=== PATIENT | male | born 1955 | race Caucasian/White ===

== ENCOUNTER → 2016-12-22 | Outpatient (CLI) | payer BC ==
--- NOTE | 2016-12-22 17:18 | NM ---
EXAMINATION TYPE: NM stress cardiolite complete DATE OF EXAM: 12/22/2016 11:02 AM COMPARISON: NONE HISTORY: 61-year-old male with chest pain TECHNIQUE: After the intravenous administration of 10.35 mCi Tc 99m Sestamibi - Rest images obtained 45 minutes post injection. The patient exercised using a HERIBERTO protocol and 1 minute prior to peak exercise was injected with 26.9 mCi Tc 99m Sestamibi - Stress images obtained 10 minutes post inject ion. FINDINGS: Targeted heart rate was achieved during performance of the study. Review of stress and rest SPECT theresa ges demonstrates no distinct perfusion abnormality. Gated analysis shows normal wall motion with an estimated left ventricular ejection fraction of 57 %. Polar maps are normal. TID as calculated at 0.8 3, within normal limits. IMPRESSION: No scintigraphic evidence for reversible ischemia
--- NOTE | 2016-12-23 15:16 | EST ---
DATE OF SERVICE: 12/22/2016 AGE: 61Y SEX: M HT: 5'10" WT: 239 lbs. Protocol Kane: X Other: Stress Cardiolite Stage: 3 Dur. of Exercise: 8:00 *Heart Rate Blood Pressure *Rest: 64 Rest: 134/95 * *Max. Achieved: 146 Maximum BP: 132/63 85% PMHR: 134 100% PMHR: 158 *METS: 9.7 INDICATIONS: Chest pain. MEDICATIONS: Lisinopril. Patient was exercised for a total period of 8 minutes. The peak heart rate of 146 was achieved. Maximum blood pressure 132/63 mmHg was noted. The resting EKG shows normal sinus rhythm with normal MI interval and QRS duration and normal ST-T waves. No ST segment depression suggestive of ischemia was noted. Patient did not complain of any chest pain during the test. No dysrhythmias are noted. FINAL IMPRESSION: 1. This exercise test is not suggestive of ischemia. 2. Patient's exercise tolerance is normal. 3. The results of the nuclear study will follow.
== END | disposition home or self-care (01) ==
LOC: RADNMMAIN 08:13
PROVIDERS: ATTEND Family Medicine
DX: R07.9 Chest pain, unspecified (principal)
CPT/HCPCS: 93017; 78452; A9500

== ENCOUNTER 2017-03-18 00:24 | Inpatient (IN) | payer BC ==
[2017-03-18] MEDS ORDERED: ENOXAPARIN 100 MG/ML SYRINGE SQ STA (00:50)
[2017-03-18] MEDS ORDERED: DILTIAZEM 125 MG in SODIUM CHLORIDE 0.9% 100 ML IV ONE (00:50)
[2017-03-18 01:10] LABS: Basophils % (A) 1 %; CH 33.6; CHCM 35.9; Eosinophils # (A) 0.2 k/uL (0-0.7); Eosinophils % (A) 3 %; HCT 42.9 % (39.0-53.0); HDW 2.84; HGB 15.2 gm/dL (13.0-17.5); Luc # (Auto) 0.24; Luc % (Auto) 4; Lymphocytes # (A) 2.3 k/uL (1.0-4.8); Lymphocytes % (A) 35 %; MCH 33.3 pg (25.0-35.0); MCHC 35.4 g/dL (31.0-37.0); MCV 93.9 fL (80.0-100.0); Mean Platelet Volume 7.2; Monocytes # (A) 0.5 k/uL (0-1.0); Monocytes % (A) 8 %; Neutrophils # (A) 3.4 k/uL (1.3-7.7); Neutrophils % (A) 51 %; RBC 4.57 m/uL (4.30-5.90); RDW 13.7 % (11.5-15.5); WBC 6.7 k/uL (3.8-10.6); WBC (Perox) 6.39
--- NOTE | 2017-03-18 01:20 | XR ---
EXAM: XR Chest, 1 View CLINICAL HISTORY: Reason: dysrhythmia TECHNIQUE: Frontal view of the chest. COMPARISON: No relevant prior studies available. FINDINGS: Lungs: Unremarkable. No consolidation. Pleural space: Unremarkable. No pneumothorax. Heart: Unremarkable. No cardiomegaly. Mediastinum: Unremarkable. Bones/joints: There are degenerative changes in the spine and shoulders. Tubes, lines and devices: Several EKG leads and wires overlie the chest. IMPRESSION: No acute process seen within the chest.
[2017-03-18 01:30] LABS: ALT 60 U/L (21-72); AST 49 U/L (17-59); Alkaline Phosphatase 51 U/L (38-126); Anion Gap 11 mmol/L; Blood Urea Nitrogen 22 mg/dL (9-20); Calcium 9.6 mg/dL (8.4-10.2); Carbon Dioxide 21 mmol/L (22-30); Chloride 110 mmol/L (98-107); Glucose 104 mg/dL (74-99); Magnesium 2.1 mg/dL (1.6-2.3); Non-African American GFR(MDRD) >60 (>60 ml/min/1.73 sqM); Potassium 4.1 mmol/L (3.5-5.1); Sodium 142 mmol/L (137-145); Total Bilirubin 1.3 mg/dL (0.2-1.3); Total Protein 6.8 g/dL (6.3-8.2)
[2017-03-18 01:39] LABS: Partial Thromboplastin Time 23.1 sec (22.0-30.0); Prothrombin Time 10.3 sec (9.0-12.0)
[2017-03-18 01:40] LABS: Creatine Kinase 769 U/L (55-170)
[2017-03-18 01:52] LABS: Troponin I <0.012 ng/mL (0.000-0.034)
[2017-03-18 02:08] LABS: Creatine Kinase MB 8.2 ng/mL (0.0-2.4)
[2017-03-18] MEDS ORDERED: DILTIAZEM 5 MG/ML 5 ML VIAL IVP STA (02:30)
[2017-03-18] MEDS ORDERED: NITROGLYCERIN SL TABS 0.4 MG TAB SUBLINGUAL PRN (03:28)
[2017-03-18] MEDS ORDERED: SODIUM CHLORIDE 0.9% 1,000 ML IV SCH (03:30)
[2017-03-18] MEDS ORDERED: ENOXAPARIN 40 MG/0.4 ML SYRINGE SQ SCH (03:30)
--- NOTE | 2017-03-18 03:34 | ED ---
Arrhythmia/Palpitations HPI - General Chief Complaint: Arrhythmia/Palpitations Stated Complaint: Arrythmia Time Seen by Provider: 03/18/17 00:40 Source: patient Mode of arrival: wheelchair Limitations: no limitations - History of Present Illness Initial Comments: this patient is a 61-year-old man who presents with complaint that he feels his heart is beating rapidly and somewhat irregular. The patient states that he had been feeling well most of the day. He went to bed and then woke up around midnight. He got up to use the bathroom and after he had noticed that his heart was racing and it seemed irregular as well. Patient denies jordan pain. He states that it his breathing also felt a little off though he is reluctant to described as being short of breath. MD Complaint: rapid heart beat, irregular heart beat -: hour(s) Context: occurred during rest Associated Symptoms: shortness of breath - Related Data Home Medications Medication Instructions Recorded Confirmed Aspirin [Adult Low Dose Aspirin EC] 81 mg PO DAILY 03/18/17 03/18/17 Lisinopril [Zestril] 10 mg PO DAILY 03/18/17 03/18/17 Allergies Allergy/AdvReac Type Severity Reaction Status Date / Time No Known Allergies Allergy Verified 03/18/17 00:34 Review of Systems ROS Statement: Those systems with pertinent positive or pertinent negative responses have been documented in the HPI. ROS Other: All systems not noted in ROS Statement are negative. Constitutional: Denies: fever, chills Respiratory: Reports: as per HPI, dyspnea. Denies: cough, wheezes Cardiovascular: Reports: palpitations. Denies: chest pain, orthopnea, edema, syncope Gastrointestinal: Denies: abdominal pain, nausea, vomiting Genitourinary: Denies: dysuria, hematuria Musculoskeletal: Denies: back pain Skin: Denies: rash Neurological: Denies: headache, weakness, numbness Past Medical History Past Medical History: Hypertension History of Any Multi-Drug Resistant Organisms: None Reported Additional Past Surgical History / Comment(s): hernia Past Psychological History: No Psychological Hx Reported Smoking Status: Former smoker Past Alcohol Use History: None Reported Past Drug Use History: None Reported - Past Family History Brother(s) Family Medical History: Myocardial Infarction ([place]) Additional Family Medical History / Comment(s): Stents x2 Father Family Medical History: Myocardial Infarction ([place]) Additional Family Medical History / Comment(s): Smoker- 3 packs a day, from an [place] General Exam Limitations: no limitations General appearance: alert, in no apparent distress Head exam: Present: atraumatic, normocephalic Eye exam: Present: normal appearance. Absent: scleral icterus, conjunctival injection Neck exam: Present: normal inspection Respiratory exam: Present: normal lung sounds bilaterally. Absent: respiratory distress, wheezes, rales, rhonchi, stridor Cardiovascular Exam: Present: tachycardia (rate was in the 130s.), irregular rhythm, normal heart sounds. Absent: systolic murmur, diastolic murmur, rubs, gallop GI/Abdominal exam: Present: soft. Absent: distended, tenderness, guarding, rebound, rigid, mass Extremities exam: Present: normal inspection, normal capillary refill. Absent: pedal edema, calf tenderness Back exam: Present: normal inspection. Absent: CVA tenderness (R), CVA tenderness (L) Neurological exam: Present: alert Skin exam: Present: warm, dry, intact, normal color. Absent: rash Course Vital Signs 03/18/17 03/18/17 03/18/17 00:31 01:33 02:58 Temperature 97.7 F Pulse Rate 65 137 H 108 H Respiratory 18 20 20 Rate Blood Pressure 134/89 106/67 112/71 O2 Sat by Pulse 97 98 98 Oximetry 03/18/17 03/18/17 03:45 04:55 Temperature 97.5 F L Pulse Rate 96 70 Respiratory 16 18 Rate Blood Pressure 120/61 111/63 O2 Sat by Pulse 98 97 Oximetry EKG Findings - EKG Results: EKG: interpreted by ERMD, normal axis EKG shows: tachycardia (rate is in the 130s.), atrial fibrillation - Blocks, Weed, Hypertrophy, ST Abn: Repolarization changes or abnormalities: nonspecific abnormality, ST segment, and/or T wave Medical Decision Making - Medical Decision Making patient is 61-year-old man with what appears to be a new onset of atrial fibrillation with a rapid ventricular rate. Lovenox is started. Patient started on Cardizem for rate control. Initial cardiac enzymes negative. Patient feeling better though the rate still is in the 110s and 20s. Patient admitted with cardiology consultation. - Lab Data Result diagrams: 03/18/17 00:55 03/18/17 00:55 Lab Results 03/18/17 03/18/17 03/18/17 Range/Units 00:55 00:55 00:55 WBC 6.7 (3.8-10.6) k/uL RBC 4.57 (4.30-5.90) m/uL Hgb 15.2 (13.0-17.5) gm/dL Hct 42.9 (39.0-53.0) % MCV 93.9 (80.0-100.0) fL MCH 33.3 (25.0-35.0) pg MCHC 35.4 (31.0-37.0) g/dL RDW 13.7 (11.5-15.5) % Plt Count 138 L (150-450) k/uL Neutrophils % 51 % Lymphocytes % 35 % Monocytes % 8 % Eosinophils % 3 % Basophils % 1 % Neutrophils # 3.4 (1.3-7.7) k/uL Lymphocytes # 2.3 (1.0-4.8) k/uL Monocytes # 0.5 (0-1.0) k/uL Eosinophils # 0.2 (0-0.7) k/uL Basophils # 0.0 (0-0.2) k/uL PT (9.0-12.0) sec INR (<1.1) APTT (22.0-30.0) sec Sodium 142 (137-145) mmol/L Potassium 4.1 (3.5-5.1) mmol/L Chloride 110 H (98-107) mmol/L Carbon Dioxide 21 L (22-30) mmol/L Anion Gap 11 mmol/L BUN 22 H (9-20) mg/dL Creatinine 1.00 (0.66-1.25) mg/dL Est GFR (MDRD) Af Amer >60 (>60 ml/min/1.73 sqM) Est GFR (MDRD) Non-Af >60 (>60 ml/min/1.73 sqM) Glucose 104 H (74-99) mg/dL Calcium 9.6 (8.4-10.2) mg/dL Magnesium 2.1 (1.6-2.3) mg/dL Total Bilirubin 1.3 (0.2-1.3) mg/dL AST 49 (17-59) U/L ALT 60 (21-72) U/L Alkaline Phosphatase 51 (38-126) U/L Total Creatine Kinase 769 H (55-170) U/L CK-MB (CK-2) 8.2 H* (0.0-2.4) ng/mL CK-MB (CK-2) Rel Index 1.1 Troponin I <0.012 (0.000-0.034) ng/mL Total Protein 6.8 (6.3-8.2) g/dL Albumin 4.1 (3.5-5.0) g/dL 03/18/17 Range/Units 00:55 WBC (3.8-10.6) k/uL RBC (4.30-5.90) m/uL Hgb (13.0-17.5) gm/dL Hct (39.0-53.0) % MCV (80.0-100.0) fL MCH (25.0-35.0) pg MCHC (31.0-37.0) g/dL RDW (11.5-15.5) % Plt Count (150-450) k/uL Neutrophils % % Lymphocytes % % Monocytes % % Eosinophils % % Basophils % % Neutrophils # (1.3-7.7) k/uL Lymphocytes # (1.0-4.8) k/uL Monocytes # (0-1.0) k/uL Eosinophils # (0-0.7) k/uL Basophils # (0-0.2) k/uL PT 10.3 (9.0-12.0) sec INR 1.0 (<1.1) APTT 23.1 (22.0-30.0) sec Sodium (137-145) mmol/L Potassium (3.5-5.1) mmol/L Chloride (98-107) mmol/L Carbon Dioxide (22-30) mmol/L Anion Gap mmol/L BUN (9-20) mg/dL Creatinine (0.66-1.25) mg/dL Est GFR (MDRD) Af Amer (>60 ml/min/1.73 sqM) Est GFR (MDRD) Non-Af (>60 ml/min/1.73 sqM) Glucose (74-99) mg/dL Calcium (8.4-10.2) mg/dL Magnesium (1.6-2.3) mg/dL Total Bilirubin (0.2-1.3) mg/dL AST (17-59) U/L ALT (21-72) U/L Alkaline Phosphatase (38-126) U/L Total Creatine Kinase (55-170) U/L CK-MB (CK-2) (0.0-2.4) ng/mL CK-MB (CK-2) Rel Index Troponin I (0.000-0.034) ng/mL Total Protein (6.3-8.2) g/dL Albumin (3.5-5.0) g/dL Critical Care Time Critical Care Time: Yes (35 minutes) Disposition Clinical Impression: Atrial fibrillation with RVR Disposition: ADMITTED IP TO THIS HOSP Condition: Fair
[2017-03-18 05:57] VITALS: BMI 32.8
[2017-03-18 07:19] LABS: Creatine Kinase 620 U/L (55-170)
[2017-03-18 07:31] LABS: Troponin I <0.012 ng/mL (0.000-0.034)
[2017-03-18 07:36] LABS: Creatine Kinase MB 7.1 ng/mL (0.0-2.4)
[2017-03-18] MEDS: LISINOPRIL 10 MG TAB PO SCH (08:41)
[2017-03-18] MEDS ORDERED: NON-FORMULARY DRUG (Aspirin [Adult Low Dose Aspirin Ec] 81 MG) PO SCH (09:00)
[2017-03-18] MEDS ORDERED: ENOXAPARIN 100 MG/ML SYRINGE SQ SCH (12:00)
--- NOTE | 2017-03-18 12:18 | P.CRDCN ---
History of Present Illness Consult date: 03/18/17 Requesting physician: Darion Galan Consult reason: atrial fibrillation Chief complaint: Palpitations History of present illness: This is a pleasant 61-year-old gentleman with history of hypertension , no diabetes, no hyperlipidemia, nonsmoker, who presents to the hospital with symptoms of palpitations. According to the patient and his both had the flu in December, and since then he states he's been getting intermittent palpitations. Even prior to that, patient states that he's been getting palpitations which he attributed to his hiatal hernia. He has never had documented atrial fibrillation in the past. Patient states that when he goes into this a regular rhythm he feels awful, he denies any syncopal episodes, no overt dizziness or lightheadedness, mild shortness of breath. EKG on admission showed atrial fibrillation with a rapid ventricular response, patient was initiated on IV Cardizem and is now in normal sinus rhythm. Chest x-ray does not reveal any acute process. CBC normal. Potassium 4.1, BUN 22, creatinine 1.0. Troponins 0.0122.. At the time of my examination this morning, patient denies any palpitations, no dizziness or lightheadedness, breathing is stable. Continues to be in a normal sinus rhythm. Cardizem drip has been discontinued, patient is on Lovenox 100 mg subcu twice a day. We will discontinue the aspirin. Check to see if the patient has coverage for one of the newer anticoagulants. We will also request a TSH level and echocardiogram with Doppler study Past Medical History Past Medical History: Hypertension Additional Past Medical History / Comment(s): pt states "the palpation started the day after I had in the flu back in dec. I'll have them for a week or so then it goes away. It starts at night when I lay down". Hernia x4 (2 have been repaired), History of Any Multi-Drug Resistant Organisms: None Reported Additional Past Surgical History / Comment(s): hernia Past Anesthesia/Blood Transfusion Reactions: No Reported Reaction Past Psychological History: No Psychological Hx Reported Smoking Status: Former smoker Past Alcohol Use History: None Reported Past Drug Use History: None Reported - Past Family History Brother(s) Family Medical History: Myocardial Infarction ([place]) Additional Family Medical History / Comment(s): Stents x2 Father Family Medical History: Myocardial Infarction ([place]) Additional Family Medical History / Comment(s): Smoker- 3 packs a day, from an [place] Medications and Allergies Home Medications Medication Instructions Recorded Confirmed Type Aspirin [Adult Low Dose Aspirin EC] 81 mg PO DAILY 03/18/17 03/18/17 History Lisinopril [Zestril] 10 mg PO BID 03/18/17 03/18/17 History Allergies Allergy/AdvReac Type Severity Reaction Status Date / Time No Known Allergies Allergy Verified 03/18/17 00:34 Physical Exam Vitals: Vital Signs Temp Pulse Pulse Resp BP BP Pulse Ox 03/18/17 08:28 96 03/18/17 08:00 96.4 F L 68 109/65 94 L 03/18/17 05:10 97.0 F L 89 17 111/73 94 L 03/18/17 04:55 97.5 F L 70 18 111/63 97 03/18/17 03:45 96 16 120/61 98 03/18/17 02:58 108 H 20 112/71 98 03/18/17 01:33 137 H 20 106/67 98 03/18/17 00:31 97.7 F 65 18 134/89 97 Intake and Output 03/17/17 03/18/17 03/18/17 22:59 06:59 14:59 Intake Total 5 337.5 Balance 5 337.5 Intake: IV 5 Diltiazem 125 mg In 5 Sodium Chloride 0.9% 100 ml @ 5 MG/HR 5 mls/hr IV .Q24H ONE Rx#:[id number] Intake, IV Titration 37.5 Amount Diltiazem 125 mg In 37.5 Sodium Chloride 0.9% 100 ml @ 5 MG/HR 5 mls/hr IV .Q24H ONE Rx#:[id number] Oral 300 Other: Weight 106.594 kg PHYSICAL EXAMINATION: HEENT: Head is atraumatic, normocephalic. Pupils equal, round. Neck is supple. There is no elevated jugular venous pressure. HEART EXAMINATION: Heart S1, S2 normal. No murmur or gallop heard. CHEST EXAMINATION: Lungs are clear to auscultation and precussion. No chest wall tenderness is noted on palpation or with deep breathing. ABDOMEN: Soft, nontender. Bowel sounds are heard. No organomegaly noted. EXTREMITIES: 2+ peripheral pulses with no evidence of peripheral edema and no calf tenderness noted. NEUROLOGIC patient is awake, alert and oriented -3. . Results 03/18/17 00:55 03/18/17 00:55 Cardiac Enzymes 03/18/17 03/18/17 03/18/17 Range/Units 00:55 00:55 06:35 AST 49 (17-59) U/L CK-MB (CK-2) 8.2 H* 7.1 H* (0.0-2.4) ng/mL Troponin I <0.012 <0.012 (0.000-0.034) ng/mL Coagulation 03/18/17 Range/Units 00:55 PT 10.3 (9.0-12.0) sec APTT 23.1 (22.0-30.0) sec CBC 03/18/17 Range/Units 00:55 WBC 6.7 (3.8-10.6) k/uL RBC 4.57 (4.30-5.90) m/uL Hgb 15.2 (13.0-17.5) gm/dL Hct 42.9 (39.0-53.0) % Plt Count 138 L (150-450) k/uL Comprehensive Metabolic Panel 03/18/17 Range/Units 00:55 Sodium 142 (137-145) mmol/L Potassium 4.1 (3.5-5.1) mmol/L Chloride 110 H (98-107) mmol/L Carbon Dioxide 21 L (22-30) mmol/L BUN 22 H (9-20) mg/dL Creatinine 1.00 (0.66-1.25) mg/dL Glucose 104 H (74-99) mg/dL Calcium 9.6 (8.4-10.2) mg/dL AST 49 (17-59) U/L ALT 60 (21-72) U/L Alkaline Phosphatase 51 (38-126) U/L Total Protein 6.8 (6.3-8.2) g/dL Albumin 4.1 (3.5-5.0) g/dL Current Medications Generic Name Dose Route Start Last Admin Trade Name Freq PRN Reason Stop Dose Admin Aspirin 325 mg 03/19/17 09:00 Aspirin PO DAILY DAYSI Enoxaparin Sodium 100 mg 03/18/17 12:00 Lovenox SQ Q12H DAYSI Sodium Chloride 1,000 mls @ 20 mls/hr 03/18/17 03:30 03/18/17 06:33 Saline 0.9% IV 20 mls/hr .Q24H DAYSI Administration Lisinopril 10 mg 03/18/17 09:00 03/18/17 08:41 Zestril PO 10 mg DAILY DAYSI Administration Nitroglycerin 0.4 mg 03/18/17 03:28 Nitrostat SUBLINGUAL Q5M PRN Chest Pain Intake and Output 03/17/17 03/18/17 03/18/17 22:59 06:59 14:59 Intake Total 5 337.5 Balance 5 337.5 Intake: IV 5 Diltiazem 125 mg In 5 Sodium Chloride 0.9% 100 ml @ 5 MG/HR 5 mls/hr IV .Q24H ONE Rx#:[id number] Intake, IV Titration 37.5 Amount Diltiazem 125 mg In 37.5 Sodium Chloride 0.9% 100 ml @ 5 MG/HR 5 mls/hr IV .Q24H ONE Rx#:[id number] Oral 300 Other: Weight 106.594 kg 03/18/17 00:55 03/18/17 00:55 EKG Interpretations (text) EKG shows atrial fibrillation with rapid ventricular response Assessment and Plan Plan: Assessment and plan #1 atrial fibrillation with rapid ventricular response, appears to be of new onset. Paroxysmal in nature. #2 hypertension #3 hiatal hernia Plan We will obtain an echocardiogram with Doppler study. We will also request a TSH level be performed. We will check to see if patient has coverage for one of the newer anticoagulants. Discontinue aspirin. Further recommendations to follow. DNP note has been reviewed, I agree with a documented findings and plan of care. Patient was seen and examined.
--- NOTE | 2017-03-18 12:53 | P.PN ---
Progress Note - Text 61-year-old male patient with recurrent palpitations for the last for 5 months after he developed a viral gastroenteritis. The episodes last for up to 5 hours. He feels tired fatigued short of breath and dizzy with this it usually occurs when he is resting was the evening after a heavy meal and is often preceded by upper GI symptoms and a bloating sensation and burping Hypertension for many years states that he has sleep apnea and stops breathing but he has never been formally tested for this No diabetes, denies dyslipidemia, TSH pending Examination is normal He is back in sinus rhythm Twelve-lead ECG is not available in the EMR and I got a copy from the EKG machine and it shows atrial fibrillation with a heart rate of 128 beats a minute nonspecific ST T abnormalities T-wave inversions in the inferior leads and the lateral precordial leads Impression Recurrent paroxysmal atrial fibrillation Hypertension, essential Likely sleep apnea Abnormal ECG with T-wave inversions as described above Plan I had a very detailed discussion with him regarding the management of atrial fibrillation I discussed antiarrhythmic drug therapy as well as ablation for atrial fibrillation I discussed anticoagulation and his ANGIE VASC score appears to be one 2-D echo, TSH, ELIQUIS short-term Flecainide 100 mg twice daily as an inpatient, twelve-lead ECG tomorrow. If this is normal then he may go home on 50 g twice daily If he continues to have breakthrough episodes, pulmonary vein isolation will be recommended Hypertension management, home blood pressure monitoring Sleep apnea assessment I'll see him in the office in a few weeks Exercise stress testing on flecainide
[2017-03-18 13:36] LABS: Creatine Kinase 529 U/L (55-170)
[2017-03-18 13:49] LABS: Troponin I <0.012 ng/mL (0.000-0.034)
[2017-03-18 14:10] LABS: Creatine Kinase MB 6.4 ng/mL (0.0-2.4)
[2017-03-18] MEDS: FLECAINIDE 50 MG TAB PO SCH ×2 (14:40→20:49)
[2017-03-18] MEDS: APIXABAN 5 MG TAB PO SCH ×2 (14:40→18:12)
--- NOTE | 2017-03-18 14:55 | P.HPIM ---
History of Present Illness H&P Date: 03/18/17 Chief Complaint: Heart palpitations Patient is a 61-year-old male, patient of Dr. Galan in the outpatient setting, with medical history significant for hypertension, osteophyte is, a large prostate, and hiatal hernia. Patient presented to the emergency department with complains of heart palpitations. Onset of symptoms started after patient had a large meal 2 hours before going to bed and then woke up with heartburn and feeling his heart racing. Patient reports that he's had approximately 3-4 episodes in the past starting in November after patient had the Norovirus. Patient states it usually starts after he has a large meal and develops heartburn and subsequent heart palpitations. Patient states symptoms usually subside but are associated with mild lightheadedness and weakness. Patient states he sits up symptoms normally dissipate. Patient states he had a recent stress test that was normal. Patient reports occasional abdominal bloating. Patient reports urinary hesitancy. Patient denies any recent illness, fevers, shortness of breath, chest pain, abdominal pain, diarrhea, or constipation. Patient denies dysuria or hematuria. EKG in the emergency department with evidence of atrial fibrillation with heart rate in the 130s. Troponins negative 3. Chest x-ray with no acute cardiopulmonary process. Patient was started on IV Cardizem and transferred to selective care unit with consult to cardiology service. Upon exam, patient is feeling better. Denies palpitations, dizziness, lightheadedness, shortness of breath, or chest pain. Patient is currently in normal sinus rhythm. Cardizem drip has been discontinued and patient has been started on Lovenox 100 mg subcu twice a day. Thyroid function test within normal limit. Echocardiogram with Doppler study pending. Cardiology has seen and evaluated patient and is planning to check if patient has coverage for one of the new anticoagulants. Past Medical History Past Medical History: Hypertension Additional Past Medical History / Comment(s): pt states "the palpation started the day after I had in the flu back in dec. I'll have them for a week or so then it goes away. It starts at night when I lay down". Hernia x4 (2 have been repaired), History of Any Multi-Drug Resistant Organisms: None Reported Additional Past Surgical History / Comment(s): hernia Past Anesthesia/Blood Transfusion Reactions: No Reported Reaction Past Psychological History: No Psychological Hx Reported Smoking Status: Former smoker Past Alcohol Use History: None Reported Past Drug Use History: None Reported - Past Family History Brother(s) Family Medical History: Myocardial Infarction ([place]) Additional Family Medical History / Comment(s): Stents x2 Father Family Medical History: Myocardial Infarction ([place]) Additional Family Medical History / Comment(s): Smoker- 3 packs a day, from an [place] Medications and Allergies Home Medications Medication Instructions Recorded Confirmed Type Aspirin [Adult Low Dose Aspirin EC] 81 mg PO DAILY 03/18/17 03/18/17 History Lisinopril [Zestril] 10 mg PO BID 03/18/17 03/18/17 History Allergies Allergy/AdvReac Type Severity Reaction Status Date / Time No Known Allergies Allergy Verified 03/18/17 00:34 Physical Exam Vitals: Vital Signs Temp Pulse Pulse Resp BP BP Pulse Ox 03/18/17 08:28 96 03/18/17 08:00 96.4 F L 68 109/65 94 L 03/18/17 05:10 97.0 F L 89 17 111/73 94 L 03/18/17 04:55 97.5 F L 70 18 111/63 97 03/18/17 03:45 96 16 120/61 98 03/18/17 02:58 108 H 20 112/71 98 03/18/17 01:33 137 H 20 106/67 98 03/18/17 00:31 97.7 F 65 18 134/89 97 Intake and Output 03/17/17 03/18/17 03/18/17 22:59 06:59 14:59 Intake Total 5 337.5 Balance 5 337.5 Intake: IV 5 Diltiazem 125 mg In 5 Sodium Chloride 0.9% 100 ml @ 5 MG/HR 5 mls/hr IV .Q24H ONE Rx#:[id number] Intake, IV Titration 37.5 Amount Diltiazem 125 mg In 37.5 Sodium Chloride 0.9% 100 ml @ 5 MG/HR 5 mls/hr IV .Q24H ONE Rx#:[id number] Oral 300 Other: Weight 106.594 kg GENERAL: Pt awake and alert, well-appearing, well-nourished, and in no acute distress. HEAD: Atraumatic, normocephalic. EYES: Pupils equal, round, and reactive to light, extraocular movements intact, sclera anicteric, conjunctiva are normal. ENT: Moist mucous membranes. NECK:Supple without lymphadenopathy or JVD. LUNGS: Breath sounds clear to auscultation bilaterally. No wheezes, rales, or rhonchi. HEART: Heart S1, S2, no S3 or S4. Regular rate and rhythm. No murmurs, rubs or gallops. ABDOMEN: Soft, nontender, mildly distended, normoactive bowel sounds. No guarding, no rebound. No masses or organomegaly appreciated. EXTREMITIES: 2+ peripheral pulses. No edema, clubbing or cyanosis. No calf tenderness. NEUROLOGICAL: Pt oriented x 3. Cranial nerves II through XII grossly intact. Strength and sensation grossly intact. PSYCH: Normal mood, normal affect. SKIN: Warm, dry, intact. Normal turgor. No rashes or lesions. Results CBC & Chem 7: 03/18/17 00:55 03/18/17 00:55 Labs: Abnormal Lab Results - Last 24 Hours (Table) 03/18/17 03/18/17 03/18/17 Range/Units 00:55 00:55 00:55 Plt Count 138 L (150-450) k/uL Chloride 110 H (98-107) mmol/L Carbon Dioxide 21 L (22-30) mmol/L BUN 22 H (9-20) mg/dL Glucose 104 H (74-99) mg/dL Total Creatine Kinase 769 H (55-170) U/L CK-MB (CK-2) 8.2 H* (0.0-2.4) ng/mL 03/18/17 03/18/17 Range/Units 06:35 12:54 Plt Count (150-450) k/uL Chloride (98-107) mmol/L Carbon Dioxide (22-30) mmol/L BUN (9-20) mg/dL Glucose (74-99) mg/dL Total Creatine Kinase 620 H 529 H (55-170) U/L CK-MB (CK-2) 7.1 H* 6.4 H* (0.0-2.4) ng/mL Chest x-ray: report reviewed Thrombosis Risk Factor Assmnt - DVT/VTE Prophylaxis DVT/VTE Prophylaxis: Pharmacologic Prophylaxis ordered - Choose All That Apply Any of the Below Risk Factors Present?: Yes Each Factor Represents 1 point: Obesity (BMI >25) Other Risk Factors: Yes Each Risk Factor Represents 2 Points: Age 61-74 years Other congenital or acquired thrombophilia - If yes, enter type in comment: No Thrombosis Risk Factor Assessment Total Risk Factor Score: 3 Thrombosis Risk Factor Assessment Level: Moderate Risk Assessment and Plan Plan: Impression and plan: 1. Atrial fibrillation with rapid ventricular response, new onset, paroxysmal. Continue Lovenox 100 mg subcu twice a day. Cardiology to determine outpatient anticoagulation therapy. Echocardiogram with Doppler pending. 2. Hypertension. Continue lisinopril 10 mg by mouth daily. 3. GERD suspect secondary to hiatal hernia. Will initiate patient on Pepcid 20 mg by mouth daily. 4. History of nicotine dependence. Continue to monitor patient. Continue current medications. Continue GI and DVT prophylaxis. Continue to follow with cardiology. The above impression and plan have been discussed and directed by Dr. Painter. Toni HERNANDEZ acting as scribe for Dr. Painter.
[2017-03-18] MEDS: FAMOTIDINE 20 MG TAB PO SCH (17:29)
[2017-03-19 07:30] LABS: Cholesterol 143 mg/dL (<200); HDL Cholesterol 36 mg/dL (40-60); Triglycerides 124 mg/dL (<150)
[2017-03-19] MEDS ORDERED: ASPIRIN 325 MG TAB PO SCH (09:00)
[2017-03-19] MEDS: FLECAINIDE 50 MG TAB PO SCH (09:30)
[2017-03-19] MEDS: FAMOTIDINE 20 MG TAB PO SCH (09:30)
[2017-03-19] MEDS: LISINOPRIL 10 MG TAB PO SCH (09:30)
--- NOTE | 2017-03-19 09:32 | ECHOF ---
Referral Reason:afib MEASUREMENTS -------- HEIGHT: 180.3 cm WEIGHT: 106.6 kg BP: 109/65 RVIDd: 3.1 cm (< 3.3) IVSd: 1.7 cm (0.6 - 1.1) LVIDd: 5.4 cm (3.9 - 5.3) LVPWd: 1.7 cm (0.6 - 1.1) IVSs: 2.5 cm LVIDs: 3.7 cm LVPWs: 2.0 cm Ao Diam: 3.4 cm (2.0 - 3.7) AV Cusp: 1.9 cm (1.5 - 2.6) LA Diam: 4.3 cm (2.7 - 3.8) MV EXCURSION: 15.488 mm (> 18.000) MV EF SLOPE: 47 mm/s (70 - 150) EPSS: 0.4 cm MV E Karel: 0.77 m/s MV DecT: 290 ms MV A Karel: 0.97 m/s MV E/A Ratio: 0.79 RAP: 5.00 mmHg RVSP: 17.18 mmHg FINDINGS -------- Sinus rhythm. This was a technically difficult study with suboptimal views. There is moderate concentric left ventricular hypertrophy. Overall left ventricular systolic function is normal with, an EF between 55 - 60 %. The right ventricle is normal in size and function. Normal LA size by volume 22+/-6 ml/m2. The right atrium is normal in size. 1.5mg of Definity was utilized for enhancement of images Aortic valve is trileaflet and is mildly thickened. There is no evidence of aortic regurgitation. There is no evidence of aortic stenosis. The mitral valve leaflets are mildly thickened. There is trace to mild mitral regurgitation. Trace tricuspid regurgitation present. There is no evidence of pulmonary hypertension. The right ventricular systolic pressure, as measured by Doppler, is 17.18mmHg. Trace/mild (physiologic) pulmonic regurgitation. The aortic root size is normal. There is no pericardial effusion. CONCLUSIONS -------- 1. Sinus rhythm. 2. Trace tricuspid regurgitation present. 3. There is no evidence of pulmonary hypertension. 4. The right ventricular systolic pressure, as measured by Doppler, is 17.18mmHg. 5. Trace/mild (physiologic) pulmonic regurgitation. 6. The aortic root size is normal. 7. There is no pericardial effusion. 8. This was a technically difficult study with suboptimal views. 9. There is moderate concentric left ventricular hypertrophy. 10. Overall left ventricular systolic function is normal with, an EF between 55 - 60 %. 11. Normal LA size by volume 22+/-6 ml/m2. 12. 1.5mg of Definity was utilized for enhancement of images 13. Aortic valve is trileaflet and is mildly thickened. 14. The mitral valve leaflets are mildly thickened. 15. There is trace to mild mitral regurgitation. HOT ROLL INSPECTOR: Wood Connolly RDCS
--- NOTE | 2017-03-19 11:26 | P.PN ---
Progress Note - Text Doing well. He tolerated flecainide 100 mg twice daily. His twelve-lead ECG shows sinus rhythm with normal ST segments on flecainide 100 mg twice daily today. O atrial fibrillation. Vitals are stable heart sounds S1 and S2 are normal no murmurs or gallops breath sounds are normal no rhonchi no crackles abdomen is soft nontender home no edema Blood pressure 128/79 mmHg pulse rate in the 70s Impression Essential hypertension Moderate left ventricular hypertrophy with preserved LV systolic function and normal left atrial size by 2-D echo Paroxysmal atrial fibrillation, symptomatic ANGIE VASC score of 1 Likely sleep apnea per history from Plan may go home today Flecainide 50 g twice daily, atenolol 25 mg in the morning lisinopril 10 mg daily He was supposed to take 10 mg twice daily. He can't tolerate it. This dose will be increased if his blood pressure is elevated as an outpatient Outpatient cardiac workup Sleep apnea assessment
--- NOTE | 2017-03-19 12:16 | P.DS ---
Providers Date of admission: 03/18/17 03:28 Expected date of discharge: 03/19/17 Attending physician: Darion Galan Consults: 03/18/17 03:28 Consult Physician Routine Consulting Provider: Kelly Gates Consult Reason/Comments: atrial fibrillation with RVR Do you want consulting provider notified?: Yes Primary care physician: Darion Galan [facility] Course: Patient is a 61-year-old male, patient of Dr. Galan in the outpatient setting, with medical history significant for hypertension, enlarged prostate, hiatal hernia, and possible sleep apnea. Patient presented to the emergency department with complaints of heart palpitations and evidence of atrial fibrillation with rapid ventricular response. Patient was started on IV Cardizem and transferred to selective care unit with consult to cardiology service. Patient converted to normal sinus rhythm. Patient was started on flecainide which he tolerated well. Echocardiogram with evidence of moderate left ventricular hypertrophy with preserved systolic LV function and normal left atrial size. Patient was felt stable for discharge to home with follow-up with both cardiology and Dr. Painter in the outpatient setting. Discharge diagnoses: 1. New onset paroxysmal atrial fibrillation. 2. Hypertension. 3. Possible GERD. 4. History of nicotine dependence. 5. Possible sleep apnea. 6. History of hiatal hernia. The above impression and plan have been discussed and directed by Dr. Painter. Toni HERNANDEZ acting as scribe for Dr. Painter. Pertinent Studies: Chest x-ray; echocardiogram with Doppler Patient Condition at Discharge: Good Plan - Discharge Summary New Discharge Prescriptions: Atenolol 25 mg PO DAILY #30 tablet Famotidine [Pepcid] 20 mg PO DAILY #30 tab Flecainide [Tambocor] 50 mg PO Q12HR #60 tab Lisinopril [Zestril] 10 mg PO DAILY #30 tab Discharge Medication List Aspirin [Adult Low Dose Aspirin EC] 81 mg PO DAILY 03/18/17 [History] Atenolol 25 mg PO DAILY #30 tablet 03/19/17 [Rx] Famotidine [Pepcid] 20 mg PO DAILY #30 tab 03/19/17 [Rx] Flecainide [Tambocor] 50 mg PO Q12HR #60 tab 03/19/17 [Rx] Lisinopril [Zestril] 10 mg PO DAILY #30 tab 03/19/17 [Rx] Follow up Appointment(s)/Referral(s): Darion Galan MD [Primary Care Provider] - 1-2 days Ryne Teague MD [STAFF PHYSICIAN] - 1 Week Patient Instructions/Handouts: Atrial Fibrillation (DC) Discharge Disposition: HOME SELF-CARE
[2017-03-19 12:22] VITALS: BP 133/84; PULSE 70; RESP 18; TEMP 97.1
== END 2017-03-19 17:26 | disposition home or self-care (01) | DRG 310 ==
LOC: EC 00:24 → 6SEL 03:28
PROVIDERS: ADMIT Family Medicine; ATTEND Family Medicine
DX: I48.0 Paroxysmal atrial fibrillation (principal); I10 Essential (primary) hypertension; G47.30 Sleep apnea, unspecified; I51.7 Cardiomegaly; K21.9 Gastro-esophageal reflux disease without esophagitis; K44.9 Diaphragmatic hernia without obstruction or gangrene; N40.0 Benign prostatic hyperplasia without lower urinary tract symptoms; R39.11 Hesitancy of micturition; Z79.82 Long term (current) use of aspirin; Z79.899 Other long term (current) drug therapy; Z87.891 Personal history of nicotine dependence; Z82.49 Family history of ischemic heart disease and other diseases of the circulatory system
CPT/HCPCS: 36415; 71010; 80053; 80061; 82550; 82553; 83735; 84439; 84443; 84484; 85025; 85610; 85730; 93005; 93306; 94760

== ENCOUNTER → 2017-05-06 | Outpatient (CLI) | payer BC ==
--- NOTE | 2017-05-07 08:43 | CONS ---
DATE OF CONSULTATION: 05/06/2017 A 61-year-old gentleman has been evaluated in sleep center for possible obstructive sleep apnea hypopnea syndrome. HISTORY OF PRESENT ILLNESS/SLEEP WAKE EVALUATION: SLEEP SCHEDULE: The patient's usual sleep schedule from 11 p.m. to 7 a.m. FALLING ASLEEP: No problem with falling asleep. No TV in bedroom. DURING SLEEP: Patient sleeps usually on the side position .He wakes up from sleep up to 4 times and several times may have episodes of nocturia during the night. Sometimes he has stuffiness of his nose. Positive history of snoring. On the back, patient has more episodes of snoring and he wakes up in that position. On the side, he breathes better. DURING THE DAY/WAKE STATE: ( ) [place] sleepiness scale is 5. PAST MEDICAL HISTORY: Positive for paroxysmal atrial fibrillation. The patient describes 6 episode. Hypertension. PAST SURGICAL HISTORY: Umbilical hernia repair and groin hernia repair. MEDICATIONS: Lisinopril, flecainide, beta blockers, patient does not remember the name. SOCIAL HISTORY: Positive for smoking in the past, quit 40 years ago. Alcohol consumption about 1 beer per week. REVIEW OF SYSTEMS: Sometimes awakenings from sleep several times, episodes of cardiac arrhythmia. No fevers. No double vision. No recent chest pain. No shortness of breath. No abdominal pain. No bleeding episodes. No blood in urine. No seizure episodes. FAMILY HISTORY: Hypertension. PHYSICAL EXAMINATION: During physical exam, a 61-year-old gentleman without distress. VITAL SIGNS: BP 116/67. HR 55. RR 16. Height 5 feet 10 inches, weight 228.4, BMI 32.7. Neck 16.75 inches in circumference. Temperature 98 degrees. Oxygen saturation in room air 94%. HEENT: PERRLA, EOMI: Evaluation of oropharynx showed moderately low to normal position of soft palate, slight restriction of nasal breathing. NECK: Supple No JVD. Thyroid is not palpable. LUNGS: Clear to percussion and to auscultation. Good air exchange. No wheezing or rhonchi. HEART: S1, S2 regular. No murmurs, gallops or rubs. ABDOMEN: Obese. EXTREMITIES: No clubbing or cyanosis. GUEST SERVICES LEAD: Awake, alert and oriented x3. Cranial nerves 2 to 7 intact. There is no fasciculation or atrophy noted. No focal deficits observed. IMPRESSION: 1. Snoring, awakenings from sleep with gasping for air while on the back position, obesity, wide neck, possible obstructive sleep apnea hypopnea syndrome. 2. Obesity, body mass index 32.7. 3. History of paroxysmal atrial fibrillation. 4. Status post umbilical hernia repair. 5. Status post groin hernia repair. 6. History of left ventricular hypertrophy. PLAN: 1. Polysomnography for evaluation of patient's breathing during sleep. 2. CPAP titration for correction of respiratory abnormalities if necessary. 3. Watching and losing weight. 4. Sleep hygiene with regular time in bed for at least 8 hours. 5. No driving if feeling any sleepiness. 6. Preferably to continue to sleep on the side. Thank you very much for allowing me to participate in management of your patient. Sincerely, Bienvenido Grullon MD, PhD, FAASM Diplomat of [employer] Sleep Medicine Board by [employer] Worker of [facility] [place]. MARINO
== END ==
LOC: SLEEP 13:29
PROVIDERS: ATTEND Internal Medicine
DX: R06.83 Snoring (principal); E66.9 Obesity, unspecified; I48.0 Paroxysmal atrial fibrillation; Z98.890 Other specified postprocedural states; Z79.899 Other long term (current) drug therapy; Z87.891 Personal history of nicotine dependence
CPT/HCPCS: 99211

== ENCOUNTER → 2017-07-15 | Outpatient (CLI) | payer BC ==
--- NOTE | 2017-07-15 13:43 | PN ---
PROGRESS NOTE DATE OF SERVICE: 07/15/2017 A 62-year-old gentleman who has been seen in sleep center for follow-up visit to discuss results of home sleep apnea test. I discussed results of home sleep apnea test with the patient in details. The sleep study showed 10 apneas including 5 of them was central and 56 hypopneas with total apnea apnea-hypopnea index 8.9 and oxygen desaturation to 87%. According to patient during the home sleep apnea test, he slept only short period of time, maybe about only 1 hour. Subsequently, results of the test may show numbers which is significantly less than it could be in reality. [place] Sleepiness Scale 2 days. MEDICATIONS: Lisinopril, atenolol, medication for paroxysmal atrial fibrillation. PHYSICAL EXAMINATION: GENERAL: During physical exam, patient in no distress. VITAL SIGNS BP 119/65, HR 56 , RR 16, temperature 98.1, oxygen saturation at room air 97%. Weight 224. Height 5 feet 10 inches. BMI 32.1. HEENT PERRLA, EOMI, evaluation of oropharynx showed practically normal position of soft palate. NECK: Supple, no JVD. Thyroid is not palpable. LUNGS: Clear to percussion and to auscultation. Good air exchange. No wheezing or rhonchi. HEART: Systolic murmur on aorta. ABDOMEN: Slightly obese. EXTREMITIES: No clubbing or cyanosis. SIGN DESIGNER: Awake, alert, and oriented X3. Cranial nerves 2 to 7 intact. There is no fasciculation or atrophy. noted. No focal deficits observed. IMPRESSION: 1. Obstructive sleep apnea-hypopnea syndrome by results of home sleep apnea test. 2. History of paroxysmal atrial fibrillation episodes started during sleep. 3. History of hypertension. 4. Arthritis of arms. 5. BPH. PLAN: 1. CPAP titration. 2. Sleep hygiene with regular time in bed. 3. No driving if feeling any sleepiness. 4. Watching weight. Thank you very much for allowing me to participate in management of your patient. Sincerely, Bienvenido Grullon MD, PhD, FAASM Diplomat of [employer] Field Organizer of [facility] [place] MMODL / IJN: [id number] /
== END | disposition home or self-care (01) ==
LOC: SLEEP 11:06
PROVIDERS: ATTEND Internal Medicine
DX: G47.33 Obstructive sleep apnea (adult) (pediatric) (principal); N40.0 Benign prostatic hyperplasia without lower urinary tract symptoms

== ENCOUNTER 2018-04-26 07:14 | Day surgery (SDC) | payer BC ==
[2018-04-20 15:22] VITALS: BMI 32.1
[~2018-04-26 07:14] MED LIST: LACTATED RINGERS 1,000 ML IV SCH
[2018-04-26 07:32] VITALS: RESP 20; TEMP 97.7
[2018-04-26] MEDS ORDERED: LIDOCAINE 1% INJ 10MG/ML (20 ML MDV) ONE (07:51)
[2018-04-26] MEDS ORDERED: PROPOFOL 10 MG/ML 20 ML VIAL IV ONE (07:51)
--- NOTE | 2018-04-26 07:53 | P.GSHP ---
History of Present Illness H&P Date: 04/26/18 Chief Complaint: Colon cancer screening Patient here today for colonoscopy. Last colonoscopy possibly 5 years ago. Patient is a personal history of colon polyps. Also has a inguinal hernia that will be addressed later this year for the patient. No bowel related complaints. Past Medical History Past Medical History: Atrial Fibrillation, Hypertension Additional Past Medical History / Comment(s): pt states "the palpation started the day after I had in the flu back in dec. I'll have them for a week or so then it goes away. It starts at night when I lay down". Hernia x4 (2 have been repaired), History of Any Multi-Drug Resistant Organisms: None Reported Past Surgical History: Hernia Repair Additional Past Surgical History / Comment(s): Colonoscopy Past Anesthesia/Blood Transfusion Reactions: No Reported Reaction Smoking Status: Former smoker - Past Family History Brother(s) Family Medical History: Myocardial Infarction ([place]) Additional Family Medical History / Comment(s): Stents x2 Father Family Medical History: Myocardial Infarction ([place]) Additional Family Medical History / Comment(s): Smoker- 3 packs a day, from an [place] Medications and Allergies Home Medications Medication Instructions Recorded Confirmed Type Atenolol 25 mg PO DAILY #30 tablet 03/19/17 04/26/18 Rx Flecainide [Tambocor] 50 mg PO Q12HR #60 tab 03/19/17 04/26/18 Rx Lisinopril [Zestril] 10 mg PO DAILY #30 tab 03/19/17 04/26/18 Rx Allergies Allergy/AdvReac Type Severity Reaction Status Date / Time No Known Allergies Allergy Verified 04/20/18 15:14 Surgical - Exam Vital Signs Temp Pulse Resp BP Pulse Ox 97.7 F 53 L 20 148/77 95 04/26/18 07:30 04/26/18 07:30 04/26/18 07:30 04/26/18 07:30 04/26/18 07:30 Physical exam: General: Well-developed, well-nourished HEENT: Normocephalic, sclerae nonicteric Abdomen: Nontender, nondistended Extremities: No edema Neuro: Alert and oriented Assessment and Plan (1) Colon cancer screening Narrative/Plan: Will proceed with colonoscopy at this time. Current Visit: Yes Status: Acute Code(s): Z12.11 - ENCOUNTER FOR SCREENING FOR MALIGNANT NEOPLASM OF COLON SNOMED Code(s): 854807429
--- NOTE | 2018-04-26 08:22 | P.PCN ---
Date of Procedure: 04/26/18 Procedure(s) Performed: PREOPERATIVE DIAGNOSIS: Colon cancer screening POSTOPERATIVE DIAGNOSIS: Transverse, sigmoid polyp, diverticulosis PROCEDURE: Colonoscopy with snare polypectomy ANESTHESIA: MAC SURGEON: Curtis Mcclelland M.D. SPECIMENS: Polyps ENDOSCOPIC PROCEDURE: The patient was placed on the endoscopy table in the left decubitus position. The Olympus colonoscope was inserted into the anus and passed under direct visualization to the base of the cecum. The appendiceal orifice was visualized. From that point the scope was slowly withdrawn inspecting all surfaces carefully. There were no neoplastic inflammatory or polypoid lesions throughout the cecum or ascending colon. In the transverse colon a polyp was identified and removed using the snare with cautery technique. The remainder of the transverse and descending colon appeared normal. In the sigmoid colon an additional small polyp was removed in a similar fashion. The remainder of the sigmoid and rectum appeared normal. There was moderate left sided diverticulosis present. Digital rectal examination was normal. The patient was taken to the recovery room in stable condition per anesthesia guidelines. RECOMMENDATIONS: Await biopsy results. Anticipate follow-up colonoscopy 5 years.
[2018-04-26 08:37] VITALS: BP 127/61; PULSE 52
== END 2018-04-26 09:02 | disposition home or self-care (01) ==
LOC: ORWHC2ENDO 07:14
PROVIDERS: ATTEND Surgery
DX: Z12.11 Encounter for screening for malignant neoplasm of colon (principal); D12.5 Benign neoplasm of sigmoid colon; D12.3 Benign neoplasm of transverse colon; K57.30 Diverticulosis of large intestine without perforation or abscess without bleeding; I48.91 Unspecified atrial fibrillation; I10 Essential (primary) hypertension; Z87.891 Personal history of nicotine dependence; Z82.49 Family history of ischemic heart disease and other diseases of the circulatory system; Z79.899 Other long term (current) drug therapy
CPT/HCPCS: 88305; 45385; J2001; J2704

== ENCOUNTER 2021-01-09 11:05 | Observation (INO) | payer MEDICARE ==
[2021-01-09] MEDS ORDERED: ALBUTEROL HFA INHALER INHALATION STA (11:41)
[2021-01-09] MEDS ORDERED: SODIUM CHLORIDE 0.9% 500 ML 500 ML IV STA (11:47)
--- NOTE | 2021-01-09 11:50 | ED ---
General Adult HPI - General Chief complaint: Weakness Stated complaint: Covid + Source: patient Mode of arrival: ambulatory Limitations: no limitations - History of Present Illness Initial comments: 65-year-old male presents to the emergency room for a chief complaint of weakness. Patient states he was diagnosed with Covid 3 days ago. This was done in his doctor's office. Patient states his symptoms started a week ago. Consist of a cough and weakness. States he has not been able to eat or drink much for the past week. States when he tries to walk he gets very shaky and feels very weak. Admits to minimal shortness of breath. Denies chest pain. Denies fevers. States he lives at home with his who also has Covid. Patient has no other complaints at this time including chest pain, abdominal pain, nausea or vomiting, headache, or visual changes. - Related Data Home Medications Medication Instructions Recorded Confirmed Ascorbic Acid [Vitamin C] 1,000 mg PO DAILY 01/09/21 01/09/21 Cholecalciferol [Vitamin D3 (25 25 mcg PO DAILY 01/09/21 01/09/21 Mcg = 1000 Iu)] Flecainide [Tambocor] 50 mg PO DAILY 01/09/21 01/09/21 Vitamin A 8,000 unit PO DAILY 01/09/21 01/09/21 Zinc 50 mg PO DAILY 01/09/21 01/09/21 lisinopriL 20 mg PO DAILY 01/09/21 01/09/21 Previous Rx's Medication Instructions Recorded atenoloL [Atenolol] 25 mg PO DAILY #30 tablet 03/19/17 Allergies Allergy/AdvReac Type Severity Reaction Status Date / Time No Known Allergies Allergy Verified 01/09/21 12:05 Review of Systems ROS Statement: Those systems with pertinent positive or pertinent negative responses have been documented in the HPI. ROS Other: All systems not noted in ROS Statement are negative. Past Medical History Past Medical History: Atrial Fibrillation, Hypertension Additional Past Medical History / Comment(s): pt states "the palpation started the day after I had in the flu back in dec. I'll have them for a week or so then it goes away. It starts at night when I lay down". Hernia x4 (2 have been repaired), History of Any Multi-Drug Resistant Organisms: None Reported Past Surgical History: Hernia Repair Additional Past Surgical History / Comment(s): Colonoscopy Past Anesthesia/Blood Transfusion Reactions: No Reported Reaction Past Psychological History: No Psychological Hx Reported Smoking Status: Former smoker Past Alcohol Use History: Rare Past Drug Use History: None Reported - Past Family History Brother(s) Family Medical History: Myocardial Infarction ([place]) Additional Family Medical History / Comment(s): Stents x2 Father Family Medical History: Myocardial Infarction ([place]) Additional Family Medical History / Comment(s): Smoker- 3 packs a day, from an [place] General Exam Limitations: no limitations General appearance: alert, in no apparent distress Head exam: Present: atraumatic Eye exam: Present: normal appearance, PERRL, EOMI. Absent: scleral icterus, conjunctival injection ENT exam: Present: normal exam, mucous membranes moist Neck exam: Present: normal inspection, full ROM. Absent: tenderness Respiratory exam: Present: normal lung sounds bilaterally. Absent: respiratory distress, wheezes Cardiovascular Exam: Present: regular rate, normal rhythm, normal heart sounds GI/Abdominal exam: Present: soft, normal bowel sounds. Absent: distended, tenderness Neurological exam: Present: alert Course Vital Signs 01/09/21 01/09/21 01/09/21 11:07 12:10 12:22 Temperature 98.3 F Pulse Rate 72 70 Respiratory 18 20 20 Rate Blood Pressure 111/72 O2 Sat by Pulse 93 L 92 L Oximetry 01/09/21 01/09/21 12:44 12:50 Temperature Pulse Rate 74 Respiratory 20 Rate Blood Pressure 108/72 O2 Sat by Pulse 90 L 90 L Oximetry EKG Findings - EKG Comments: EKG Findings:: Normal sinus rhythm, ventricular rate 70, pr int 72, QTc 464 Medical Decision Making - Medical Decision Making Patient presents hypoxic with a room air oxygenation of 90-93%. Stable vitals otherwise. CBC is unremarkable. CMP does show mild hyponatremia, gently rehydrated. Hypocalcemia noted as well as transaminitis. LDH and CRP are elevated. Chest x-ray shows a subtle patchy peripheral density that may reflect early Covid pneumonia CT chest and she no does not show any evidence of PE. Ground glass changes compatible with Covid pneumonia. There is underlying pulmonary arterial hypertension as well as mild aneurysm of the ascending aorta noted at 4.1 cm. Incidental splenomegaly also noted. As patient is hypoxic and is very weak he will be admitted for further management. - Lab Data Result diagrams: 01/09/21 11:51 01/09/21 11:51 Lab Results 01/09/21 01/09/21 01/09/21 Range/Units 11:51 11:51 11:51 WBC 5.3 (3.8-10.6) k/uL RBC 4.71 (4.30-5.90) m/uL Hgb 15.4 (13.0-17.5) gm/dL Hct 43.3 (39.0-53.0) % MCV 91.8 (80.0-100.0) fL MCH 32.7 (25.0-35.0) pg MCHC 35.6 (31.0-37.0) g/dL RDW 13.1 (11.5-15.5) % Plt Count 109 L (150-450) k/uL MPV 8.6 Neutrophils % 81 % Lymphocytes % 9 % Monocytes % 7 % Eosinophils % 1 % Basophils % 1 % Neutrophils # 4.3 (1.3-7.7) k/uL Lymphocytes # 0.5 L (1.0-4.8) k/uL Monocytes # 0.4 (0-1.0) k/uL Eosinophils # 0.0 (0-0.7) k/uL Basophils # 0.0 (0-0.2) k/uL Hyperchromasia Slight PT 10.2 (9.0-12.0) sec INR 0.9 (<1.2) APTT 22.3 (22.0-30.0) sec D-Dimer 0.95 H (<0.60) mg/L FEU Sodium 130 L (137-145) mmol/L Potassium 4.4 (3.5-5.1) mmol/L Chloride 98 (98-107) mmol/L Carbon Dioxide 24 (22-30) mmol/L Anion Gap 8 mmol/L BUN 20 (9-20) mg/dL Creatinine 0.91 (0.66-1.25) mg/dL Est GFR (CKD-EPI)AfAm >90 (>60 ml/min/1.73 sqM) Est GFR (CKD-EPI)NonAf 88 (>60 ml/min/1.73 sqM) Glucose 117 H (74-99) mg/dL Plasma Lactic Acid Rishabh (0.7-2.0) mmol/L Calcium 8.2 L (8.4-10.2) mg/dL Magnesium 2.2 (1.6-2.3) mg/dL Total Bilirubin 1.8 H (0.2-1.3) mg/dL AST 79 H (17-59) U/L ALT 83 H (4-49) U/L Alkaline Phosphatase 44 (38-126) U/L Lactate Dehydrogenase 1069 H (313-618) U/L C-Reactive Protein 49.1 H (<10.0) mg/L Total Protein 6.3 (6.3-8.2) g/dL Albumin 3.4 L (3.5-5.0) g/dL 01/09/21 Range/Units 11:51 WBC (3.8-10.6) k/uL RBC (4.30-5.90) m/uL Hgb (13.0-17.5) gm/dL Hct (39.0-53.0) % MCV (80.0-100.0) fL MCH (25.0-35.0) pg MCHC (31.0-37.0) g/dL RDW (11.5-15.5) % Plt Count (150-450) k/uL MPV Neutrophils % % Lymphocytes % % Monocytes % % Eosinophils % % Basophils % % Neutrophils # (1.3-7.7) k/uL Lymphocytes # (1.0-4.8) k/uL Monocytes # (0-1.0) k/uL Eosinophils # (0-0.7) k/uL Basophils # (0-0.2) k/uL Hyperchromasia PT (9.0-12.0) sec INR (<1.2) APTT (22.0-30.0) sec D-Dimer (<0.60) mg/L FEU Sodium (137-145) mmol/L Potassium (3.5-5.1) mmol/L Chloride (98-107) mmol/L Carbon Dioxide (22-30) mmol/L Anion Gap mmol/L BUN (9-20) mg/dL Creatinine (0.66-1.25) mg/dL Est GFR (CKD-EPI)AfAm (>60 ml/min/1.73 sqM) Est GFR (CKD-EPI)NonAf (>60 ml/min/1.73 sqM) Glucose (74-99) mg/dL Plasma Lactic Acid Rishabh 1.0 (0.7-2.0) mmol/L Calcium (8.4-10.2) mg/dL Magnesium (1.6-2.3) mg/dL Total Bilirubin (0.2-1.3) mg/dL AST (17-59) U/L ALT (4-49) U/L Alkaline Phosphatase (38-126) U/L Lactate Dehydrogenase (313-618) U/L C-Reactive Protein (<10.0) mg/L Total Protein (6.3-8.2) g/dL Albumin (3.5-5.0) g/dL Disposition Clinical Impression: COVID-19, Acute respiratory failure with hypoxia, Hyponatremia Disposition: ADMITTED IP TO THIS HOSP Is patient prescribed a controlled substance at d/c from ED?: No Referrals: Alex Painter Jr, [Primary Care Provider] - 1-2 days Time of Disposition: 13:58
[2021-01-09 12:25] LABS: ALT 83 U/L (4-49); AST 79 U/L (17-59); African American GFR (CKD) >90 (>60 ml/min/1.73 sqM); Albumin 3.4 g/dL (3.5-5.0); Alkaline Phosphatase 44 U/L (38-126); Anion Gap 8 mmol/L; Blood Urea Nitrogen 20 mg/dL (9-20); C Reactive Protein 49.1 mg/L (<10.0); Calcium 8.2 mg/dL (8.4-10.2); Carbon Dioxide 24 mmol/L (22-30); Chloride 98 mmol/L (98-107); Glucose 117 mg/dL (74-99); LDH 1069 U/L (313-618); Magnesium 2.2 mg/dL (1.6-2.3); Non-African American GFR(CKD) 88 (>60 ml/min/1.73 sqM); Potassium 4.4 mmol/L (3.5-5.1); Sodium 130 mmol/L (137-145); Total Bilirubin 1.8 mg/dL (0.2-1.3); Total Protein 6.3 g/dL (6.3-8.2)
--- NOTE | 2021-01-09 12:32 | XR ---
EXAMINATION TYPE: XR chest 1V portable DATE OF EXAM: 01/09/2021 Comparison: 03/18/2017 Clinical History: 65-year-old male shortness of breath, Suspected COVID-19 pneumonia Findings: Heart upper limits of normal in size. Aorta and pulmonary vasculature within normal limits. Subtle pa tchy peripheral opacities. No pleural effusion. Impression: Subtle patchy peripheral densities may reflect early COVID pneumonia.
[2021-01-09 12:46] LABS: INR 0.9 (<1.2); Partial Thromboplastin Time 22.3 sec (22.0-30.0); Prothrombin Time 10.2 sec (9.0-12.0)
[2021-01-09 12:48] LABS: Basophils % (A) 1 %; Eosinophils % (A) 1 %; HCT 43.3 % (39.0-53.0); HGB 15.4 gm/dL (13.0-17.5); Hyperchromasia Slight; Lymphocytes # (A) 0.5 k/uL (1.0-4.8); Lymphocytes % (A) 9 %; MCH 32.7 pg (25.0-35.0); MCHC 35.6 g/dL (31.0-37.0); MCV 91.8 fL (80.0-100.0); Mean Platelet Volume 8.6; Monocytes # (A) 0.4 k/uL (0-1.0); Monocytes % (A) 7 %; Neutrophils # (A) 4.3 k/uL (1.3-7.7); Neutrophils % (A) 81 %; Platelet Count 109 k/uL (150-450); RBC 4.71 m/uL (4.30-5.90); RDW 13.1 % (11.5-15.5); WBC 5.3 k/uL (3.8-10.6)
[2021-01-09 13:04] LABS: D-Dimer 0.95 mg/L FEU (<0.60)
--- NOTE | 2021-01-09 13:41 | CT ---
EXAMINATION TYPE: CT chest angio for PE DATE OF EXAM: 01/09/2021 COMPARISON: Radiograph same date HISTORY: 65-year-old male COVID positive, elevated d-dimer, Productive cough and weakness. TECHNIQUE: Contiguous axial scanning of the chest performed with IV Contrast, patient injected with 1 00 mL of Isovue 370. Coronal/sagittal MIP reconstructions performed. CT DLP: 476.3 mGycm Automated exposure control for dose reduction was used. FINDINGS: The heart is normal size with trace anterior pericardial effusion measuring 5 mm thick. No flattening of the interventricular septum reflux of contrast into the hepatic veins. Ascending aorta mildly aneurysmal at 4.1 cm. Dimension arch vessel branching anatomy. Scattered nonenlarged mediastinal and right hilar lymph nodes. No thoracic lymphadenopathy by CT size criteria. Mildly enlarged caliber to the main right and left pulmonary arteries at 2.8 cm each suggesting under lying pulmonary hypertension. There is satisfactory opacification of pulmonary arterial system with m otion artifact. Apparent filling defect in the left lower lobe localizes to the pulmonary venous syst em on axial image 89. No definite pulmonary embolus is seen allowing for the breathing motion artifac t. Multifocal peripheral and peribronchial vascular groundglass opacity. No pleural effusion. Underlying hypodense lesions within the liver measuring up to 3.0 cm suggestive of cysts. Spleen is m ildly enlarged at 14.4 cm. Bones: Mild degenerative disc disease mid to lower thoracic spine. IMPRESSION: 1. SOME BREATHING MOTION ARTIFACT LIMITING THE EXAM. NO DEFINITE PULMONARY EMBOLUS. 2. HOWEVER, FINDINGS SUGGEST UNDERLYING PULMONARY ARTERIAL HYPERTENSION. 3. ADDITIONAL GROUNDGLASS CHANGES COMPATIBLE WITH COVID PNEUMONIA. 4. MILD ANEURYSM ASCENDING AORTA 4.1 CM. 5. INCIDENTAL MILD SPLENOMEGALY AT 14.4 CM.
[2021-01-09] MEDS ORDERED: NALOXONE 0.4 MG/ML 1 ML VIAL IV PRN (13:59)
[2021-01-09] MEDS ORDERED: ONDANSETRON 4 MG/2 ML VIAL IVP PRN (13:59)
[2021-01-09] MEDS ORDERED: ACETAMINOPHEN TAB 325 MG TAB PO PRN (13:59)
[2021-01-09] MEDS ORDERED: DEXAMETHASONE SOD PHOSPHATE 10 MG/ML 1 ML VIAL IV SCH (14:00)
[2021-01-09] MEDS: SODIUM CHLORIDE 0.9% 1,000 ML IV SCH (14:46)
--- NOTE | 2021-01-09 15:34 | P.CNPUL ---
History of Present Illness Consult date: 01/09/21 Requesting physician: Alex Painter Jr Reason for consult: pneumonia Chief complaint: Weakness History of present illness: This is a 65-year-old white male, seen in the ER for 9 days history of weakness. His weakness was associated with cough, very minimal shortness of breath if any, minimal aches and pains initially, but no fever, no chills, no hemoptysis, no GI symptoms, no nausea no vomiting no diarrhea. Patient tested positive for covid 19 about 3 days ago at his doctor's office. However in the last 3 days his symptoms have been progressively worse especially the weakness symptoms. Patient was seen in the ER today, and his chest x-ray and CT of the chest showed multifocal peripheral and peribronchial groundglass opacities. Considering the findings, we were asked to see him on consultation. Patient is on room air, and his O2 saturation in the low 90s. Hence we felt that the patient would be an ideal candidate for monoclonal antibody injection, recommended admitting the p atient for observation, and reassess in the next 24 hours. His labs showed relatively normal CBC, there is evidence of lymphopenia, and thrombocytopenia, low sodium of 130, and elevated inflammatory markers including LDH of 1069 and C-reactive protein of 49.1. Repeat davila virus PCR was positive in the ER today. Patient is known to have history of paroxysmal atrial fibrillation. Benign essential hypertension, And he is a former smoker. 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 HEENT: No loss of sensation of taste or smell. No sore throat. Pulmonary: Dry cough, minimal shortness of breath. Cardiac: History of chronic atrial fibrillation, denies any chest pain or orthopnea or PND. GI: Negative. Genitourinary: Negative. Musculoskeletal: Minimal aches and pains and weakness. Skin: Negative Neurologic: Negative Psychiatric: Negative Hematologic: Negative Past Medical History Past Medical History: Atrial Fibrillation, Hypertension Additional Past Medical History / Comment(s): pt states "the palpation started the day after I had in the flu back in dec. I'll have them for a week or so then it goes away. It starts at night when I lay down". Hernia x4 (2 have been repaired), History of Any Multi-Drug Resistant Organisms: None Reported Past Surgical History: Hernia Repair Additional Past Surgical History / Comment(s): Colonoscopy Past Anesthesia/Blood Transfusion Reactions: No Reported Reaction Past Psychological History: No Psychological Hx Reported Smoking Status: Former smoker Past Alcohol Use History: Rare Past Drug Use History: None Reported - Past Family History Brother(s) Family Medical History: Myocardial Infarction ([place]) Additional Family Medical History / Comment(s): Stents x2 Father Family Medical History: Myocardial Infarction ([place]) Additional Family Medical History / Comment(s): Smoker- 3 packs a day, from an [place] Medications and Allergies Home Medications Medication Instructions Recorded Confirmed Type atenoloL [Atenolol] 25 mg PO DAILY #30 tablet 03/19/17 01/09/21 Rx Ascorbic Acid [Vitamin C] 1,000 mg PO DAILY 01/09/21 01/09/21 History Cholecalciferol [Vitamin D3 (25 25 mcg PO DAILY 01/09/21 01/09/21 History Mcg = 1000 Iu)] Flecainide [Tambocor] 50 mg PO DAILY 01/09/21 01/09/21 History Vitamin A 8,000 unit PO DAILY 01/09/21 01/09/21 History Zinc 50 mg PO DAILY 01/09/21 01/09/21 History lisinopriL 20 mg PO DAILY 01/09/21 01/09/21 History Allergies Allergy/AdvReac Type Severity Reaction Status Date / Time No Known Allergies Allergy Verified 01/09/21 12:05 Physical Exam Vitals: Vital Signs Temp Pulse Resp BP Pulse Ox 01/09/21 14:47 69 20 113/73 93 L 01/09/21 12:50 74 20 108/72 90 L 01/09/21 12:44 90 L 01/09/21 12:22 70 20 92 L 01/09/21 12:10 20 01/09/21 11:07 98.3 F 72 18 111/72 93 L Intake and Output 01/09/21 01/09/21 01/09/21 06:59 14:59 22:59 Other: Weight 104.326 kg Physical Exam: Revealed a 65-year-old white male, pleasant, in no distress. On room air. Head: Atraumatic, normocephalic. HEENT:[Neck is supple.] [No neck masses.] [No thyromegaly.] [No JVD.] Chest: [Symmetrical chest expansion, minimal crackles at the bases no rhonchi and no wheezes. Cardiac Exam: Irregular irregular rhythm. [Normal S1 and S2, no S3 gallop, no murmur.] Abdomen: [Soft, nontender, no megaly, no rebound, no guarding, normal bowel sounds.] Extremities: [No clubbing, no edema, no cyanosis.] Neurological Exam: [No focal neurologic deficit.] Alert and oriented 3. Psychiatric: Normal mood affect and normal mental status examination. Skin: No rashes. Lymphatics: No cervical adenopathy. Musculoskeletal: No limitation in range of motion no deformities. Results - Laboratory Findings CBC and BMP: 01/09/21 11:51 01/09/21 11:51 PT/INR, D-dimer PT 10.2 sec (9.0-12.0) 01/09/21 11:51 INR 0.9 (<1.2) 01/09/21 11:51 D-Dimer 0.95 mg/L FEU (<0.60) H 01/09/21 11:51 Abnormal lab findings: Abnormal Labs 01/09/21 01/09/21 01/09/21 11:51 11:51 11:51 Plt Count 109 L Lymphocytes # 0.5 L D-Dimer 0.95 H Sodium 130 L Glucose 117 H Calcium 8.2 L Total Bilirubin 1.8 H AST 79 H ALT 83 H Lactate Dehydrogenase 1069 H C-Reactive Protein 49.1 H Albumin 3.4 L Coronavirus (PCR) 01/09/21 12:21 Plt Count Lymphocytes # D-Dimer Sodium Glucose Calcium Total Bilirubin AST ALT Lactate Dehydrogenase C-Reactive Protein Albumin Coronavirus (PCR) Detected A - Diagnostic Findings CT scan - chest: image reviewed (As noted in HPI, multifocal peripheral infiltrates consistent with covid 19 pneumonitis.) Assessment and Plan Assessment: Impression: Acute Covid 19 pneumonitis. Elevated inflammatory markers secondary to above. Relative lymphopenia and thrombocytopenia secondary to above. Chronic atrial fibrillation. Benign essential hypertension. History of hiatal hernia. Hypovolemic hyponatremia. Recommendation: Would recommend admission/ observation. Would recommend a monoclonal antibody/bamlanivimab Covid 19 cocktail. Reassess in the next 24 hours, We'll follow Time with Patient: Greater than 30
[2021-01-09 16:12] VITALS: RESP 18
[2021-01-09] MEDS: ENOXAPARIN 40 MG/0.4 ML SYRINGE SQ SCH (17:14)
[2021-01-09] MEDS: ZINC SULFATE 220 MG CAP PO SCH (17:14)
[2021-01-09] MEDS ORDERED: BAMLANIVIMAB 700 MG in SODIUM CHLORIDE 0.9% 50 ML IVPB ONE (18:00)
[2021-01-09] MEDS: ASCORBIC ACID 500 MG TAB PO SCH (20:43)
--- NOTE | 2021-01-09 23:17 | CONS ---
CONSULTATION DATE OF SERVICE: 01/09/2021 REASON FOR CONSULTATION: COVID-19 infection. HISTORY OF PRESENT ILLNESS: The patient is a 65-year-old male presenting to the ER with chief complaints of weakness. The patient's symptoms have been going on for about a week. These symptoms started on Wednesday last week. The patient mentioned he did not have any energy. The patient denies having any headache or URI symptoms. Denies having any chest pain or shortness of breath. Did have very minimal cough with occasional sputum production. No hemoptysis. Some nausea and decreased oral intake. No vomiting. No abdominal pain. Did have multiple loose stools. The patient apparently was diagnosed with COVID-19 about 3 days ago; however, with worsening symptoms the patient presented to the hospital. On arrival in the ER, the patient was afebrile. Subsequently he did have a low-grade fever of 100.1 degrees Fahrenheit. The patient has been hypoxic, with saturations around 94% to 93% on room air. The patient did have a normal white count with lymphopenia. D-dimer was mildly elevated at 0.95. Kidney function was normal. Liver enzymes are elevated as well as LDH and CRP. Daily PCR was negative. The patient did have a chest x-ray which shows patchy peripheral densities; might reflect early COVID pneumonia. CT angiogram was negative for PE; however, it does show multifocal peripheral and peribronchial vascular groundglass opacity. The patient has been admitted to the hospital, evaluated by Pulmonary. He was started on steroids in addition to the bamlanivimab. Infectious Disease was consulted for further management. REVIEW OF SYSTEMS: Positive points have been mentioned in the HPI. Rest of the systems are negative. PAST MEDICAL HISTORY: Atrial fibrillation, hypertension. PAST SURGICAL HISTORY: Colonoscopy, hernia repair. SOCIAL HISTORY: Remote history of smoking. Rarely drinks. No drug use. FAMILY HISTORY: Brother with history of [place]. Father with history of [place] as well. ALLERGIES: NO KNOWN DRUG ALLERGIES. MEDICATIONS: The patient is currently on zinc sulfate, Zofran, Narcan, Zestril, Lovenox, dexamethasone, Tenormin, vitamin C and Tylenol. He received a dose of bamlanivimab. PHYSICAL EXAMINATION: Blood pressure 119/63, pulse of 72, temperature 100.1. He is 91% on room air. General description is an elderly male lying in bed in no distress. No tachypnea or accessory muscle of respiration use. HEENT: Examination shows no pallor or scleral icterus. Oral mucous membrane is dry. NECK: Trachea is central. No thyromegaly. LUNGS: Unlabored breathing. Decreased intensity of breath sounds. No wheeze. HEART: S1, S2. Regular rate and rhythm. ABDOMEN: Soft. No tenderness. No guarding or rigidity. EXTREMITIES: No edema of the feet. SKIN EXAMINATION: No rash or mass palpable. Neurologically the patient is awake, alert, oriented x3. Mood and affect normal. LABS: Hemoglobin 15.4, white count 5.3 with a BUN of 20, creatinine 0.91. D-dimer is 0.95. Liver enzymes are mildly elevated. LDH is 1069. Chest x-ray report as mentioned above. DIAGNOSTIC IMPRESSION AND PLAN: Patient admitted to hospital with generalized weakness, no energy, cough with evidence of multifocal pneumonia, positive COVID test; symptoms a week ago. The patient did have mild hypoxemia and will be an ideal candidate for remdesivir, with a fever. Still concern for ongoing viral replication. PLAN: 1. Will see response to the bamlanivimab. If the patient does have improvement in the next 24 hours, we will monitor closely. Otherwise, he will be offered remdesivir. 2. Continue the patient on dexamethasone, Lovenox, zinc and ascorbic acid. 3. Droplet isolation and respiratory support. 4. We will follow his clinical condition and further adjust his medication if needed. Thank you for this consultation. Will follow this patient along with you. MMODL / IJN: [id number] /
[2021-01-10 05:11] LABS: Ferritin 3374.5 ng/mL (22.0-322.0)
[2021-01-10 07:50] LABS: ALT 94 U/L (4-49); AST 78 U/L (17-59); African American GFR (CKD) >90 (>60 ml/min/1.73 sqM); Albumin 2.9 g/dL (3.5-5.0); Alkaline Phosphatase 43 U/L (38-126); Anion Gap 8 mmol/L; Blood Urea Nitrogen 22 mg/dL (9-20); C Reactive Protein 48.8 mg/L (<10.0); Calcium 8.1 mg/dL (8.4-10.2); Carbon Dioxide 24 mmol/L (22-30); Chloride 103 mmol/L (98-107); Globulin 2.8 g/dL; Glucose 118 mg/dL (74-99); LDH 935 U/L (313-618); Non-African American GFR(CKD) 89 (>60 ml/min/1.73 sqM); Potassium 4.3 mmol/L (3.5-5.1); Sodium 135 mmol/L (137-145); Total Bilirubin 1.3 mg/dL (0.2-1.3); Total Protein 5.7 g/dL (6.3-8.2)
[2021-01-10 07:59] LABS: Basophils % (A) 0 %; Eosinophils % (A) 0 %; Lymphocytes # (A) 0.5 k/uL (1.0-4.8); Lymphocytes % (A) 9 %; MCH 34.1 pg (25.0-35.0); MCHC 36.8 g/dL (31.0-37.0); MCV 92.6 fL (80.0-100.0); Mean Platelet Volume 8.5; Monocytes # (A) 0.3 k/uL (0-1.0); Monocytes % (A) 6 %; Neutrophils # (A) 4.4 k/uL (1.3-7.7); Neutrophils % (A) 83 %; RDW 12.2 % (11.5-15.5)
--- NOTE | 2021-01-10 08:10 | XR ---
EXAMINATION TYPE: XR chest 1V portable DATE OF EXAM: 01/10/2021 CLINICAL HISTORY: Difficulty breathing and covid progress study. TECHNIQUE: Single AP portable upright view of the chest is obtained. COMPARISON: Chest x-ray and CT chest from one day earlier FINDINGS: Multifocal areas of increased opacity redemonstrated greatest in the periphery of both margarita gs on background low lung volumes. Cardiac silhouette size is stable and upper limits of normal. Osse ous structures are intact. IMPRESSION: Bilateral multifocal opacities consistent with covid-19 infection are redemonstrated. No significant change from one day earlier.
[2021-01-10 08:49] LABS: WBC 5.3 k/uL (3.8-10.6)
[2021-01-10 08:50] LABS: Platelet Count 99 k/uL (150-450); Poikilocytosis (M) Present
[2021-01-10] MEDS ORDERED: VITAMIN A 10,000 UNIT CAPSULE PO SCH (09:00)
[2021-01-10] MEDS ORDERED: lisinopriL 20 MG TAB PO SCH (09:00)
[2021-01-10] MEDS ORDERED: FLECAINIDE 50 MG TAB PO SCH (09:00)
[2021-01-10] MEDS ORDERED: dexAMETHasone 2 MG TAB PO SCH (09:00)
[2021-01-10] MEDS ORDERED: atenoloL 25 MG TAB PO SCH (09:00)
[2021-01-10] MEDS ORDERED: CHOLECALCIFEROL 25 MCG (1000 IU) TABLET PO SCH (09:00)
[2021-01-10] MEDS: ENOXAPARIN 40 MG/0.4 ML SYRINGE SQ SCH (09:10)
[2021-01-10] MEDS: ZINC SULFATE 220 MG CAP PO SCH (09:11)
[2021-01-10] MEDS: ASCORBIC ACID 500 MG TAB PO SCH (09:11)
[2021-01-10 09:43] VITALS: BP 120/63; PULSE 67; TEMP 98.4
[2021-01-10] MEDS ORDERED: PANTOPRAZOLE 40 MG/10 ML VIAL IVP SCH (11:00)
--- NOTE | 2021-01-10 12:14 | P.PN ---
Subjective Progress Note Date: 01/10/21 Principal diagnosis: Acute CoVID 19 pneumonitis This is a 65-year-old white male, seen in the ER for 9 days history of weakness. His weakness was associated with cough, very minimal shortness of breath if any, minimal aches and pains initially, but no fever, no chills, no hemoptysis, no GI symptoms, no nausea no vomiting no diarrhea. Patient tested positive for covid 19 about 3 days ago at his doctor's office. However in the last 3 days his symptoms have been progressively worse especially the weakness symptoms. Patient was seen in the ER today, and his chest x-ray and CT of the chest showed multifocal peripheral and peribronchial groundglass opacities. Considering the findings, we were asked to see him on consultation. Patient is on room air, and his O2 saturation in the low 90s. Hence we felt that the patient would be an ideal candidate for monoclonal antibody injection, recommended admitting the patient for observation, and reassess in the next 24 hours. His labs showed relatively normal CBC, there is evidence of lymphopenia, and thrombocytopenia, low sodium of 130, and elevated inflammatory markers including LDH of 1069 and C-reactive protein of 49.1. Repeat davila virus PCR was positive in the ER today. Patient is known to have history of paroxysmal atrial fibrillation. Benign essential hypertension, And he is a former smoker. 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 He is currently sitting up in a chair at the bedside. Awake and alert in no acute distress. He did receive Bamlanivimab for the CoVID 19 yesterday. Today's feeling about the same. He continues to be short of breath with exertion. Loose congested cough. Maintaining O2 saturations in the low 90s on room air. He's currently afebrile. Hemodynamically stable. White count 5.3. Hemoglobin 14.0. Platelet count 99,000. Lymphocytes 0.5. D-dimer 0.77. Sodium 135. Potassium 4.3. Creatinine 0.90. LDH 935. C-reactive protein 48.8. Pro-calcitonin 0.07. He remains on dexamethasone, Lovenox, vitamin supplements. Chest x-ray continues with bilateral multifocal opacities consistent with Coban 19 infection. No significant change. Objective - Vital Signs Vital signs: Vital Signs Temp 98.4 F 01/10/21 09:42 Pulse 67 01/10/21 09:42 Resp 18 01/10/21 09:42 BP 120/63 01/10/21 09:42 Pulse Ox 92 L 01/10/21 09:42 Intake & Output 01/09/21 01/10/21 01/10/21 18:59 06:59 18:59 Weight 104.326 kg Other: # Voids 1 - Exam GENERAL EXAM: Alert, pleasant 65-year-old gentleman, on room air comfortable in no apparent distress. HEAD: Normocephalic. EYES: Normal reaction of pupils, equal size. NOSE: Clear with pink turbinates. THROAT: No erythema or exudates. NECK: No masses, no JVD. CHEST: No chest wall deformity. LUNGS: Equal air entry with crackles in the bilateral posterior bases. CVS: S1 and S2 normal with no audible murmur, regular rhythm. ABDOMEN: No hepatosplenomegaly, normal bowel sounds, no guarding or rigidity. SPINE: No scoliosis or deformity SKIN: No rashes CENTRAL NERVOUS SYSTEM: No focal deficits, tone is normal in all 4 extremities. EXTREMITIES: There is no peripheral edema. No clubbing, no cyanosis. Peripheral pulses are intact. - Labs CBC & Chem 7: 01/10/21 06:42 01/10/21 06:42 Labs: Abnormal Lab Results - Last 24 Hours (Table) 01/09/21 01/09/21 01/09/21 Range/Units 11:51 11:51 11:51 RBC (4.30-5.90) m/uL Hct (39.0-53.0) % Plt Count 109 L (150-450) k/uL Lymphocytes # 0.5 L (1.0-4.8) k/uL D-Dimer 0.95 H (<0.60) mg/L FEU Sodium 130 L (137-145) mmol/L BUN (9-20) mg/dL Glucose 117 H (74-99) mg/dL Calcium 8.2 L (8.4-10.2) mg/dL Ferritin 3374.5 H (22.0-322.0) ng/mL Total Bilirubin 1.8 H (0.2-1.3) mg/dL AST 79 H (17-59) U/L ALT 83 H (4-49) U/L Lactate Dehydrogenase 1069 H (313-618) U/L C-Reactive Protein 49.1 H (<10.0) mg/L Total Protein (6.3-8.2) g/dL Albumin 3.4 L (3.5-5.0) g/dL Coronavirus (PCR) (Not Detectd) 01/09/21 01/10/21 01/10/21 Range/Units 12: 06:42 06:42 RBC 4.10 L (4.30-5.90) m/uL Hct 38.0 L (39.0-53.0) % Plt Count 99 L (150-450) k/uL Lymphocytes # 0.5 L (1.0-4.8) k/uL D-Dimer 0.77 H (<0.60) mg/L FEU Sodium (137-145) mmol/L BUN (9-20) mg/dL Glucose (74-99) mg/dL Calcium (8.4-10.2) mg/dL Ferritin (22.0-322.0) ng/mL Total Bilirubin (0.2-1.3) mg/dL AST (17-59) U/L ALT (4-49) U/L Lactate Dehydrogenase (313-618) U/L C-Reactive Protein (<10.0) mg/L Total Protein (6.3-8.2) g/dL Albumin (3.5-5.0) g/dL Coronavirus (PCR) Detected A (Not Detectd) 01/10/21 Range/Units 06:42 RBC (4.30-5.90) m/uL Hct (39.0-53.0) % Plt Count (150-450) k/uL Lymphocytes # (1.0-4.8) k/uL D-Dimer (<0.60) mg/L FEU Sodium 135 L (137-145) mmol/L BUN 22 H (9-20) mg/dL Glucose 118 H (74-99) mg/dL Calcium 8.1 L (8.4-10.2) mg/dL Ferritin (22.0-322.0) ng/mL Total Bilirubin (0.2-1.3) mg/dL AST 78 H (17-59) U/L ALT 94 H (4-49) U/L Lactate Dehydrogenase 935 H (313-618) U/L C-Reactive Protein 48.8 H (<10.0) mg/L Total Protein 5.7 L (6.3-8.2) g/dL Albumin 2.9 L (3.5-5.0) g/dL Coronavirus (PCR) (Not Detectd) Assessment and Plan Assessment: 1 Acute Covid 19 pneumonitis. 2 Elevated inflammatory markers secondary to above. 3 Relative lymphopenia and thrombocytopenia secondary to above. 4 Chronic atrial fibrillation. 5 Benign essential hypertension. 6 History of hiatal hernia. 7 Hypovolemic hyponatremia. Plan: The patient was seen and evaluated by Dr. Hernandez Chest x-ray and labs reviewed Continue the current treatment plan Possibly home in a.m. We'll continue to follow I, the cosigning physician, performed a history & physical examination of the patient. Lungs sounds with crackles in the posterior bases. Maintaining good O2 saturations in the 90s on room air. I discussed the assessment and plan of care with my nurse practitioner, Anais Stephenson. I attest to the above note as dictated by her.
[2021-01-10] MEDS ORDERED: INSULIN ASPART (NovoLOG) 100 UNIT/ML VIAL SQ SCH (12:30)
--- NOTE | 2021-01-10 13:54 | P.HPIM ---
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 Worsening symptoms, increased weakness and patient presented to the ER. Denies lightheadedness dizziness or focal deficits. Denies headache. Occasional productive cough. Denies chest pain, palpitations.mild nausea, no emesis, diarrhea,decreased intake .denies abdominal pain .On admission afebrile, normal WBC. T-max 100.1. Hypoxic with O2 sats in the low 90s on room air, subsequently dropped further requiring 2 L nasal cannula to maintain O2 sats in the 90s. Renal function normal, LFTs elevated .Inflammatory markers on admission D-dimer 0.95, ferritin 3374.5, LDH 1069, CRP 49.1. Positive PCR coronavirus. Pro-calcitonin 0.07. Chest x-ray reported subtle patchy peripheral densities. Repeat chest x-ray reported no significant change. CTA limited exam reported no definite pulmonary embolus, suggested underlying pulmonary arterial hypertension, and multifocal groundglass changes compatible with Covid pneumonia, mild aneurysm ascending aorta 4.1 cm an d incidental mild splenomegaly 14.4 cm. Received Bamlanivimab with steroids initiated in addition to Covid cocktail. Significant clinical improvement. Inflammatory markers decreased, d-dimer 0.77, LDH 935, CRP 48.8. T bili 1.3, AST 78, ALT 94. Oxygen weaned off,maintaining O2 sats in the low 90s on room air. Denies cough, congestion. Denies lightheadedness dizziness or headache. Denies nausea vomiting or diarrhea. Denies chest pain, palpitations or shortness of breath. Review of Systems ROS Statement: Those systems with pertinent positive or pertinent negative responses have been documented in the HPI. ROS Other: All systems not noted in ROS Statement are negative. Past Medical History Past Medical History: Atrial Fibrillation, Hypertension Additional Past Medical History / Comment(s): pt states "the palpation started the day after I had in the flu back in dec. I'll have them for a week or so then it goes away. It starts at night when I lay down". Hernia x4 (2 have been repaired), History of Any Multi-Drug Resistant Organisms: None Reported Past Surgical History: Hernia Repair Additional Past Surgical History / Comment(s): Colonoscopy Past Anesthesia/Blood Transfusion Reactions: No Reported Reaction Past Psychological History: No Psychological Hx Reported Smoking Status: Former smoker Past Alcohol Use History: Rare Past Drug Use History: None Reported - Past Family History Brother(s) Family Medical History: Myocardial Infarction ([place]) Additional Family Medical History / Comment(s): Stents x2 Father Family Medical History: Myocardial Infarction ([place]) Additional Family Medical History / Comment(s): Smoker- 3 packs a day, from an [place] Medications and Allergies Home Medications Medication Instructions Recorded Confirmed Type atenoloL [Atenolol] 25 mg PO DAILY #30 tablet 03/19/17 01/09/21 Rx Ascorbic Acid [Vitamin C] 1,000 mg PO DAILY 01/09/21 01/09/21 History Flecainide [Tambocor] 50 mg PO DAILY 01/09/21 01/09/21 History Vitamin A 8,000 unit PO DAILY 01/09/21 01/09/21 History lisinopriL 20 mg PO DAILY 01/09/21 01/09/21 History Aspirin EC [Ecotrin Low Dose] 81 mg PO DAILY 60 Days #60 01/10/21 Rx tablet. Cholecalciferol [Vitamin D3 (25 50 mcg PO DAILY #0 01/10/21 01/09/21 Rx Mcg = 1000 Iu)] Famotidine [Pepcid] 20 mg PO BID #60 tablet 01/10/21 Rx Zinc Sulfate [Orazinc] 220 mg PO DAILY #30 cap 01/10/21 Rx dexAMETHasone [Hexadrol] 6 mg PO DAILY 7 Days #21 tab 01/10/21 Rx Allergies Allergy/AdvReac Type Severity Reaction Status Date / Time No Known Allergies Allergy Verified 01/09/21 12:05 Physical Exam Vitals: Vital Signs Temp Pulse Pulse Resp BP BP Pulse Ox 01/10/21 09:42 98.4 F 67 18 120/63 92 L 01/10/21 09:09 18 91 L 01/10/21 05:53 98.3 F 62 18 119/73 95 01/10/21 02:35 98.5 F 58 L 18 116/70 93 L 01/09/21 23:00 18 111/64 89 L 01/09/21 21:01 98.3 F 69 18 94/47 90 L 01/09/21 17:48 100.1 F H 72 18 118/63 91 L 01/09/21 16:11 99.5 F 73 18 119/70 93 L 01/09/21 15:59 98.9 F 64 20 116/78 94 L 01/09/21 14:47 69 20 113/73 93 L 01/09/21 13:30 94 L 01/09/21 12:50 74 20 108/72 90 L 01/09/21 12:44 90 L 01/09/21 12:22 70 20 92 L 01/09/21 12:10 20 01/09/21 11:07 98.3 F 72 18 111/72 93 L Intake and Output 01/09/21 01/10/21 01/10/21 22:59 06:59 14:59 Other: # Voids 1 PHYSICAL EXAM: VITAL SIGNS: As above GENERAL: Sitting up in bed, no acute distress HEENT: Conjunctivae normal. eyes normal. NECK: No JVD. No thyroid enlargement. No LNs CARDIOVASCULAR: S1, S2 irregular.No murmur RESPIRATION: Breath sounds diminished in the bases. No rhonchi with fine bibasilar crackles. ABDOMEN: Soft, nontender . No guarding. no masses palpable. No ascites, No hepatosplenomegaly.Bowel sounds heard. LEGS: No edema. no swelling, no clubbing, no cyanosis, positive DP pulses. PSYCHIATRY: Alert and oriented X3, mood and affect normal. NERVOUS SYSTEM: Cranial N 2-12 grossly normal. No focal deficits. Strength and sensation grossly intact.. Skin: Warm and dry, no rash Lymphatic system. No LN neck axilla. Results CBC & Chem 7: 01/10/21 06:42 01/10/21 06:42 Labs: Abnormal Lab Results - Last 24 Hours (Table) 01/09/21 01/09/21 01/09/21 Range/Units 11:51 11:51 11:51 RBC (4.30-5.90) m/uL Hct (39.0-53.0) % Plt Count 109 L (150-450) k/uL Lymphocytes # 0.5 L (1.0-4.8) k/uL D-Dimer 0.95 H (<0.60) mg/L FEU Sodium 130 L (137-145) mmol/L BUN (9-20) mg/dL Glucose 117 H (74-99) mg/dL Calcium 8.2 L (8.4-10.2) mg/dL Ferritin 3374.5 H (22.0-322.0) ng/mL Total Bilirubin 1.8 H (0.2-1.3) mg/dL AST 79 H (17-59) U/L ALT 83 H (4-49) U/L Lactate Dehydrogenase 1069 H (313-618) U/L C-Reactive Protein 49.1 H (<10.0) mg/L Total Protein (6.3-8.2) g/dL Albumin 3.4 L (3.5-5.0) g/dL Coronavirus (PCR) (Not Detectd) 01/09/21 01/10/21 01/10/21 Range/Units 12: 06:42 06:42 RBC 4.10 L (4.30-5.90) m/uL Hct 38.0 L (39.0-53.0) % Plt Count 99 L (150-450) k/uL Lymphocytes # 0.5 L (1.0-4.8) k/uL D-Dimer 0.77 H (<0.60) mg/L FEU Sodium (137-145) mmol/L BUN (9-20) mg/dL Glucose (74-99) mg/dL Calcium (8.4-10.2) mg/dL Ferritin (22.0-322.0) ng/mL Total Bilirubin (0.2-1.3) mg/dL AST (17-59) U/L ALT (4-49) U/L Lactate Dehydrogenase (313-618) U/L C-Reactive Protein (<10.0) mg/L Total Protein (6.3-8.2) g/dL Albumin (3.5-5.0) g/dL Coronavirus (PCR) Detected A (Not Detectd) 01/10/21 Range/Units 06:42 RBC (4.30-5.90) m/uL Hct (39.0-53.0) % Plt Count (150-450) k/uL Lymphocytes # (1.0-4.8) k/uL D-Dimer (<0.60) mg/L FEU Sodium 135 L (137-145) mmol/L BUN 22 H (9-20) mg/dL Glucose 118 H (74-99) mg/dL Calcium 8.1 L (8.4-10.2) mg/dL Ferritin (22.0-322.0) ng/mL Total Bilirubin (0.2-1.3) mg/dL AST 78 H (17-59) U/L ALT 94 H (4-49) U/L Lactate Dehydrogenase 935 H (313-618) U/L C-Reactive Protein 48.8 H (<10.0) mg/L Total Protein 5.7 L (6.3-8.2) g/dL Albumin 2.9 L (3.5-5.0) g/dL Coronavirus (PCR) (Not Detectd) Thrombosis Risk Factor Assmnt - Choose All That Apply Any of the Below Risk Factors Present?: No Other Risk Factors: Yes Each Risk Factor Represents 2 Points: Age 61-74 years Thrombosis Risk Factor Assessment Total Risk Factor Score: 2 Thrombosis Risk Factor Assessment Level: Low Risk Assessment and Plan Assessment: Acute covid-19 multifocal pneumonitis Acute hypoxic respiratory failure secondary to the above Pulmonary arterial hypertension Thrombocytopenia, reactive secondary to Covid Lymphopenia, reactive, secondary to COvid Hypovolemic hyponatremia Chronic atrial fibrillation Hypertension, essential Former nicotine dependence Mild aneurysm ascending aorta 4.1 cm Incidental mild splenomegaly 14.4 cm History of hiatal hernia Plan: Continue on current medication regime ,monitoring and symptomatic treatment. Received BAM (monoclonal antibody/bamlanivimab), Decadron, zinc, vitamin C, vitamin D, Lovenox. Cleared by both pulmonary and infectious disease for consult. Infectious disease recommends one more week of Decadron. Patient has been advised if symptoms worsen, to return for initiation of Remdesevir. Patient will be discharged home today in a stable condition with guarded prognosis. The impression and plan of care has been dictated as directed. : I performed a history and examination of this patient, discussed the same with the dictator. I agree with the dictator's note ,documented as a scribe. Any additional findings or plans will be noted.
--- NOTE | 2021-01-10 13:58 | PN ---
PROGRESS NOTE DATE OF SERVICE: 01/10/2021 REASON FOR FOLLOWUP: COVID-19 infection. INTERVAL HISTORY: The patient is currently afebrile. The patient is feeling better. Breathing comfortably. Currently on room air. The patient denies having any chest pain. Minimal cough. No nausea. No vomiting. No abdominal pain. No diarrhea. PHYSICAL EXAMINATION: Blood pressure 120/63, pulse of 67, temperature 98.4. He is 92% on room air. General description is an elderly male lying in bed in no distress. RESPIRATORY SYSTEM: Unlabored breathing, decreased intensity of breath sounds. No wheeze. HEART: S1, S2. Regular rate and rhythm. ABDOMEN: Soft, no tenderness. LABS: Hemoglobin is 14, white count 5.3. BUN of 22, creatinine 0.90. Liver enzymes mildly elevated. DIAGNOSTIC IMPRESSION AND PLAN: Patient with acute COVID-19 infection in this patient who has received bamlanivimab and seemed to have shown clinical improvement. Plan at this time is to discharge home on a short course of oral dexamethasone, multivitamin, zinc and close outpatient followup. Discussed with the admitting team. MMODL / IJN: [id number] /
[2021-01-10] MEDS: SODIUM CHLORIDE 0.9% 1,000 ML IV SCH (15:25)
== END 2021-01-10 15:42 | disposition home or self-care (01) ==
LOC: EC 11:05 → INTOOBSV 14:02 → 4SSUR 14:02
PROVIDERS: ADMIT Family Medicine; ATTEND Family Medicine
DX: U07.1 COVID-19 (principal); J12.82 Pneumonia due to coronavirus disease 2019; J96.01 Acute respiratory failure with hypoxia; I27.21 Secondary pulmonary arterial hypertension; D69.59 Other secondary thrombocytopenia; D72.810 Lymphocytopenia; I48.20 Chronic atrial fibrillation, unspecified; I10 Essential (primary) hypertension; I71.2 Thoracic aortic aneurysm, without rupture; E87.1 Hypo-osmolality and hyponatremia; E83.51 Hypocalcemia; E86.1 Hypovolemia; I48.0 Paroxysmal atrial fibrillation; R16.1 Splenomegaly, not elsewhere classified; Z79.899 Other long term (current) drug therapy; Z79.82 Long term (current) use of aspirin; Z87.891 Personal history of nicotine dependence; Z82.49 Family history of ischemic heart disease and other diseases of the circulatory system
CPT/HCPCS: 96365; 96366 ×2; 96372 ×2; 96361; 96375; 99285; 36415; 94640; 93005; 85379 ×2; 80053 ×2; 82728 ×2; 83605; 83615 ×2; 83735; 85025 ×2; 85610; 85730; 86140 ×2; 87070; 87205; 84145; 87635; 71045 ×2; 71275; G0378 ×2; J1100; J1650 ×2; J8540; Q9967; Q0239

== ENCOUNTER → 2022-03-16 | Outpatient (CLI) | payer MEDICARE ==
[2022-03-16 18:25] LABS: HGB 13.5 g/dL (13.0-17.0); MCH 32.5 pg (27.0-32.0); MCHC 33.8 g/dL (32.0-37.0); MCV 96.4 fL (80.0-97.0); Mean Platelet Volume 11.2 fL (9.5-12.2); NRBC Per 100 WBC 0 /100 WBCS (0.0-0.0); Platelet Count 149 X 10*3/uL (140-440); RBC 4.15 X 10*6/uL (4.40-5.60); WBC 6.47 X 10*3/uL (4.50-10.00)
[2022-03-16 18:33] LABS: Anion Gap 9.2 mmol/L (10.00-18.00); Carbon Dioxide 25.4 mmol/L (20.0-27.5); Potassium 4.5 mmol/L (3.5-5.5)
[2022-03-16 19:38] LABS: Basophils # (A) 0.04 X 10*3/uL (0.00-0.10); Basophils % (A) 0.6 %; Eosinophils % (A) 1.5 %; Immature Grans, Automated 0.3 %; Lymphocytes # (A) 2.29 X 10*3/uL (0.90-5.00); Lymphocytes % (A) 35.4 %; Monocytes # (A) 0.54 X 10*3/uL (0.20-1.00); Monocytes % (A) 8.3 %; Neutrophils # (A) 3.48 X 10*3/uL (1.80-7.70); Neutrophils % (A) 53.9 %; RBC Morphology NORMAL
== END | disposition home or self-care (01) ==
LOC: LABPAT 11:45
PROVIDERS: ATTEND Orthopaedic Surgery
DX: Z01.812 Encounter for preprocedural laboratory examination (principal); M23.91 Unspecified internal derangement of right knee
CPT/HCPCS: 80051; 85025

== ENCOUNTER → 2022-03-26 | Day surgery (SDC) | payer MEDICARE ==
[2022-03-25 10:30] VITALS: BMI 32.8
--- NOTE | 2022-03-25 13:53 | HP ---
HISTORY AND PHYSICAL REASON FOR ADMISSION: Surgery scheduled for 03/26/2022 HISTORY OF PRESENT ILLNESS: Ti Frederick is a 66-year-old patient seen with progressive right knee pain. We discussed options for treatment. He elected to proceed with right knee arthroscopy. Consent was obtained. PAST MEDICAL HISTORY: Hypertension. PAST SURGICAL HISTORY: Herniorrhaphy. DAILY MEDICATIONS: Atenolol, lisinopril. ALLERGIES: None. SOCIAL HISTORY: Denies tobacco use. PHYSICAL EVALUATION OF THE RIGHT KNEE: Range of motion is zero to 130. Mild effusion. Tenderness medial joint line. Positive medial Ajith's. Ligaments stable. Hip rotation without pain. Distal neurovascular exam intact. RADIOGRAPHS: Radiographs of the right knee revealed osteoarthritic changes. MRI right knee revealed medial meniscal tear, popliteal cyst and osteoarthritis. IMPRESSION: 1. Internal derangement of right knee with medial meniscal tear. 2. Right knee osteoarthritis. 3. Hypertension. PLAN: Right knee arthroscopy with partial medial meniscectomy and debridement. MMODL / IJN: [id number] /
[~2022-03-26] MED LIST changes: +BUPIVACAINE (PF) 0.25% 30 ML VIAL SQ ONE; +LACTATED RINGERS 1,000 ML IV ONE; -LACTATED RINGERS 1,000 ML IV SCH; +LIDOCAINE 2% INJ 20 MG/ML (2 ML VIAL) ONE; +ONDANSETRON 4 MG/2 ML VIAL ONE; +PROPOFOL 10 MG/ML 20 ML VIAL IV ONE; +fentaNYL (PF) 50 MCG/ML 2 ML AMP ONE
[2022-03-26 10:16] VITALS: BP 125/72; PULSE 60; RESP 15; TEMP 97
--- NOTE | 2022-03-26 14:42 | P.OP ---
Date of Procedure: 03/26/22 Preoperative Diagnosis: Internal derangement right knee Postoperative Diagnosis: 1. Tear medial meniscus right knee 2. 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 Reactive synovitis medial, lateral and suprapatellar compartments right knee Procedure(s) Performed: 1. Arthroscopic partial medial meniscectomy right knee 2. Arthroscopic microfracture medial tibial plateau right knee 3. Arthroscopic partial synovectomy medial, lateral and suprapatellar compartments right knee Anesthesia: GIDEONA, local Surgeon: Eugene Ramsey Estimated Blood Loss (ml): 7 Pathology: none sent Condition: stable Disposition: PACU Indications for Procedure: 66-year-old patient seen with progressive right knee pain. After treatment options were discussed, he elected to proceed with arthroscopy. Operative Findings: See description of procedure Description of Procedure: Patient was taken to the operative suite. Patient underwent a general anesthetic by the department of anesthesia. Patient was given preoperative an tibiotics. The right lower extremity was placed in a well-padded arthroscopic leg ely. The right leg was prepped and draped in the normal sterile orthopedic fashion. A lateral parapatellar and suprapatellar incision was made. Trochars were inserted. Arthroscopy was initiated. Suprapatellar pouch revealed diffuse thick reactive synovitis. The patellofemoral joint appeared to articulate congruently. There was grade 2 chondromalacia with no tears. The scope was guided into the medial gutter. No loose bodies or plica were identified The scope was then guided into the medial compartment. A medial parapatellar incision was made. Trocar inserted followed by probe. There was a complex tear involving the posterior horn medial meniscus extending into the midbody area. There were grade 2/3 chondromalacia changes of the medial femoral condyle and grade 3/4 chondromalacia changes of medial tibial plateau. There was thick reactive synovitis anteriorly. I performed a partial medial meniscectomy getting down to stable meniscal tissue. I performed a chondroplasty of the medial femoral condyle. I performed a chondroplasty medial tibial plateau. I performed a partial synovectomy. There was near of exposed bone medial tibial plateau measuring 1.5 cm weightbearing surface area. I introduced a microfracture awl into the medial compartment. I performed a microfracture to medial tibial plateau exposed bone area penetrating the bone with resultant bleeding at the microfracture site. The residual meniscus was probed and found to be stable. The residual osteochondral surfaces were stable. There was good decompression of synovitis. Scope and probe were then guided into the intercondylar notch. Cruciates were identified, probed and found to be stable. The scope and probe were then guided into lateral compartment. There was a radial tear anterior horn lateral meniscus and some thick reactive synovitis anteriorly. There were grade 1 chondromalacia changes throughout the lateral compartment with no tears. I performed a partial lateral meniscectomy. I performed a partial synovectomy. The residual meniscus was stable. There was good decompression of the synovitis. The scope was in guided back into the suprapatellar compartment. I introduced a motorized shaver into the super patellar compartment. I debrided some piecemeal fragments of meniscus I encount ered. I performed a partial synovectomy. The shaver was removed. There was good decompression of the synovitis. I took one more look on the entire knee no residual debris. Instruments were now removed from the joint. The joint was infiltrated with .25% Marcaine. Steri-Strips were applied to the portal sites. Sterile dressings were applied. The patient was placed into a TIMOTEO hose. No tourniquet was utilized. The patient was awakened, transferred to a bed and taken to recovery stable satisfactory condition.
== END | disposition home or self-care (01) ==
LOC: OR 09:32
PROVIDERS: ATTEND Orthopaedic Surgery
DX: M23.203 Derangement of unspecified medial meniscus due to old tear or injury, right knee (principal); I10 Essential (primary) hypertension; E78.5 Hyperlipidemia, unspecified; I48.0 Paroxysmal atrial fibrillation; I71.2 Thoracic aortic aneurysm, without rupture; R00.1 Bradycardia, unspecified; G47.33 Obstructive sleep apnea (adult) (pediatric); Z87.891 Personal history of nicotine dependence; Z98.890 Other specified postprocedural states; Z79.899 Other long term (current) drug therapy
CPT/HCPCS: 29881; 29876; 29879; J0690; J3010; J2704; J2001

== ENCOUNTER → 2023-04-08 | Outpatient (CLI) | payer MEDICARE ==
[2023-04-08 16:01] LABS: ALT 44 U/L (10-49); AST 35 U/L (14-35); Albumin/Globulin Ratio 1.67 Ratio (1.60-3.17); Alkaline Phosphatase 46 U/L (41-126); Blood Urea Nitrogen 15.5 mg/dL (9.0-27.0); Chloride 109 mmol/L (96-109); Chol/HDL Ratio 3.88 Ratio; Globulin 2.4 d/dL (1.6-3.3); Glucose 99 mg/dL (70-110); LDL Cholesterol,Calculated 85.3 mg/dL (0.0-131.0); Magnesium 2.1 mg/dL (1.5-2.4); Potassium 4.5 mmol/L (3.5-5.5); Sodium 142 mmol/L (135-145); Total Protein 6.4 d/dL (6.2-8.2)
== END | disposition home or self-care (01) ==
LOC: LABWHC1 08:25
PROVIDERS: ATTEND Nurse Practitioner Adult Health
DX: I48.0 Paroxysmal atrial fibrillation (principal); E78.5 Hyperlipidemia, unspecified
CPT/HCPCS: 36415; 80053; 80061; 83735; 84443

== ENCOUNTER 2023-08-19 08:02 | Day surgery (SDC) | payer MEDICARE ==
[2023-08-16 14:07] VITALS: BMI 33.5
[~2023-08-19 08:02] MED LIST changes: -BUPIVACAINE (PF) 0.25% 30 ML VIAL SQ ONE; -LACTATED RINGERS 1,000 ML IV ONE; +LACTATED RINGERS 1,000 ML IV SCH; -LIDOCAINE 2% INJ 20 MG/ML (2 ML VIAL) ONE; -ONDANSETRON 4 MG/2 ML VIAL ONE; -PROPOFOL 10 MG/ML 20 ML VIAL IV ONE; -fentaNYL (PF) 50 MCG/ML 2 ML AMP ONE
[2023-08-19 08:56] VITALS: RESP 16; TEMP 97
[2023-08-19] MEDS ORDERED: LIDOCAINE 1% INJ 10MG/ML (20 ML MDV) ONE (09:24)
[2023-08-19] MEDS ORDERED: PROPOFOL 10 MG/ML 20 ML VIAL IV ONE (09:24)
--- NOTE | 2023-08-19 09:28 | P.GSHP ---
History of Present Illness H&P Date: 08/19/23 Chief Complaint: Screening colonoscopy This is a 68-year-old male presents today for screening colonoscopy. Patient denies a significant GI complaints. Past Medical History Past Medical History: Atrial Fibrillation, Hypertension Additional Past Medical History / Comment(s): pt states "the palpation started the day after I had in the flu back in dec. I'll have them for a week or so then it goes away. It starts at night when I lay down". Hernia x4 (2 have been repaired), History of Any Multi-Drug Resistant Organisms: None Reported Past Surgical History: Hernia Repair, Orthopedic Surgery Additional Past Surgical History / Comment(s): Colonoscopy, knee right surgery Past Anesthesia/Blood Transfusion Reactions: No Reported Reaction Smoking Status: Former smoker - Past Family History Brother(s) Family Medical History: Myocardial Infarction ([place]) Additional Family Medical History / Comment(s): Stents x2 Father Family Medical History: Myocardial Infarction ([place]) Additional Family Medical History / Comment(s): Smoker- 3 packs a day, from an [place] Mother Family Medical History: Cancer Additional Family Medical History / Comment(s): stomach Medications and Allergies Home Medications Medication Instructions Recorded Confirmed Type atenoloL 25 mg PO DAILY #30 tablet 03/19/17 08/19/23 Rx lisinopriL 20 mg PO DAILY 01/09/21 08/19/23 History Flecainide [Tambocor] 50 mg PO Q12HR 08/16/23 08/19/23 History Allergies Allergy/AdvReac Type Severity Reaction Status Date / Time No Known Allergies Allergy Verified 08/19/23 08:42 Surgical - Exam Vital Signs Temp Pulse Resp BP Pulse Ox 97 F L 51 L 16 144/73 99 08/19/23 08:42 08/19/23 08:42 08/19/23 08:42 08/19/23 08:42 08/19/23 08:42 - General well developed, well nourished, no distress - Eyes PERRL - ENT normal pinna - Neck no masses - Respiratory normal expansion - Cardiovascular Rhythm: regular - Abdomen Abdomen: soft, non tender Assessment and Plan Plan: We'll perform screening colonoscopy.
--- NOTE | 2023-08-19 09:41 | P.OP ---
Date of Procedure: 08/19/23 Preoperative Diagnosis: Screening colonoscopy Postoperative Diagnosis: Diverticulosis Right colon polyp Procedure(s) Performed: Colonoscopy Anesthesia: MAC Surgeon: Jairo Purcell Pathology: other (Right colon polyp) Condition: stable Disposition: PACU Description of Procedure: The patient's placed on the endoscopy table in the lateral position. He received IV sedation. Digital rectal exam performed which revealed no abnormalities. Flexible colonoscope was then placed patient anus passed throughout the entire colon. Ileocecal valve was visually is. In the right colon was small sessile polyp. Removed the cold forcep. Scope was withdrawn there were some diverticular changes of the right colon and transverse colon in the descending colon and sigmoid colon were diverticular changes seen. The scope was then brought back the rectum this appeared normal. Scope withdrawn for patient.
[2023-08-19 10:14] VITALS: BP 123/76; PULSE 62
== END 2023-08-19 10:15 | disposition home or self-care (01) ==
LOC: ORWHC2ENDO 08:02
PROVIDERS: ATTEND Surgery
DX: Z12.11 Encounter for screening for malignant neoplasm of colon (principal); D12.2 Benign neoplasm of ascending colon; I10 Essential (primary) hypertension; I48.91 Unspecified atrial fibrillation; Z87.891 Personal history of nicotine dependence; Z79.899 Other long term (current) drug therapy
CPT/HCPCS: 88305; 45380; J2001; J2704

== ENCOUNTER → 2025-01-09 | Outpatient (CLI) | payer MEDICARE ==
--- NOTE | 2025-01-09 11:06 | MR ---
EXAMINATION TYPE: MR lumbar spine wo con DATE OF EXAM: 01/09/2025 COMPARISON: Lumbar spine x-ray January 04, 2025 HISTORY: Chronic lower back pain. TECHNIQUE: Multiplanar, multisequence imaging of the lumbar spine is performed without IV contrast. FINDINGS: Scoliosis is redemonstrated. Sagittal images of the lumbar spine show vertebral body height s to appear satisfactory. There is disc desiccation at L2-L3 and L4-L5 levels. There is mild disc spa ce narrowing at L2-L3 level. The conus medullaris is normal in position and signal ending at mid L1 level. The bone marrow signal intensity is within normal limits. Axial images at T12-L1 and L1-L2 levels appear within normal limits. Axial images at L2-L3 level shows tiny right paracentral disc protrusion minimally effacing the anter olateral thecal sac. Axial images at L3-L4 level shows mild to moderate facet arthropathy and ligamentum flavum hypertroph y. Spinal canal is preserved. No significant disc herniation. Axial images at L4-L5 level shows moderate facet arthropathy bilaterally. There is mild broad disc bu lge minimally effaces the anterior thecal sac. There is mild left-sided neural foraminal narrowing. Axial images at L5-S1 level show [id number] facet arthropathy bilaterally. Spinal canal is pres erved. Bilateral neural foramina are patent. There is partial visualization of at least 4.1 cm suspected thin-walled cyst in the right kidney axia l image 19. Paraspinal muscle bulk is preserved. IMPRESSION: Scoliotic curvature with multilevel degenerative change in the mid to lower lumbar spine as detailed above. [facility], , 01/09/2025 11:04 AM
== END | disposition home or self-care (01) ==
LOC: RADMRIMAIN 09:37
PROVIDERS: ATTEND Orthopaedic Surgery
DX: M47.26 Other spondylosis with radiculopathy, lumbar region (principal); M41.86 Other forms of scoliosis, lumbar region; M51.16 Intervertebral disc disorders with radiculopathy, lumbar region; M99.73 Connective tissue and disc stenosis of intervertebral foramina of lumbar region
CPT/HCPCS: 72148